=== PATIENT | male | born 1950 | race Caucasian/White ===

== ENCOUNTER 2018-10-29 14:42 | Inpatient (IN) | payer OTHER ==
[~2018-10-29] VITALS: Ht 170.2 cm; Wt 119.9 kg
[2018-10-29] MEDS ORDERED: MAG HYDROX/AL HYDROX/SIMETH 30 ML ORAL.SUSP PO PRN (15:00)
[2018-10-29] MEDS ORDERED: MAGNESIUM HYDROXIDE 2,400 MG/30 ML ORAL.SUSP. PO PRN (15:00)
[2018-10-29] MEDS ORDERED: METHYL SALICYLATE/MENTHOL TOPICAL OINTMENT 29GM TUBE. TP PRN (15:00)
[2018-10-29] MEDS ORDERED: SIMETHICONE 80 MG TAB.CHEW PO PRN (15:15)
--- NOTE | 2018-10-29 15:20 | NUR ---
Admission Note with Justification for Admission to [facility] Patient admitted to [facility] for protective oversight for emergency stabilization of acute psychiatric crisis. Pt admitted from: [facility] via [facility] Mode of arrival: Secure Transport Accompanied By: Secure Transport Precipitating behaviors that initiated intake and admission: Patient reportedly had increased depression, sexual inappropriateness, and agitation Description of failure of out patient attempts at stabilization in previous setting list behavior and medication trials: Patient sent to [facility] who recommended inpatient treatment Behaviors and assessment findings upon admission: Patient calm, joking, compliant with assessment. He followed all directions and asked appropriate questions. States he needs help with intrusive sexual thoughts and depression. Plan: Admit for protective oversight for adjustment and stabilization of medications, behaviors and mood. Intense treatment regimen including groups, medication adjustments, therapy, consistent regimen for ADL's, self care, and sleep hygiene. Daily monitoring by Inpatient staff, Psychiatry, and Medical Physician.
[2018-10-29 15:25] VITALS: BP 170/94
[2018-10-29] MEDS ORDERED: DULO30CA43 PO (15:25)
[2018-10-29] MEDS ORDERED: OXYB5TAB7 PO (15:25)
[2018-10-29] MEDS ORDERED: SIME80TA14 PO (15:25)
[2018-10-29] MEDS ORDERED: OMEP20CA9 PO (15:25)
[2018-10-29] MEDS ORDERED: ATOR10TA60 PO (15:25)
[2018-10-29] MEDS ORDERED: AMLO5TAB10 PO (15:25)
[2018-10-29] MEDS ORDERED: CLOT15CR4 TP (15:25)
[2018-10-29] MEDS ORDERED: KETO120S2 TP (15:57)
[2018-10-29] MEDS ORDERED: CARB15DR3 EACHEYE (15:57)
--- NOTE | 2018-10-29 15:57 | NUR ---
Eduardo is service connected and has [place], [place] authorization number [place] [id number].
[2018-10-29] MEDS ORDERED: POLYVINYL ALCOHOL/POVIDONE/PF OPHTH SOLUTION DROPERETTE. OU PRN (16:15)
[2018-10-29 16:30] VITALS: BP 162/91
[2018-10-29] MEDS: ATORVASTATIN CALCIUM 10 MG TABLET. PO SCH (20:16)
[2018-10-29] MEDS ORDERED: CLOTRIMAZOLE 1% TOPICAL CREAM 30GM TUBE. TP PRN (21:00)
--- NOTE | 2018-10-29 21:11 | NUR ---
Nursing Note The patient was located in the day room for his assessment and medication pass. The patient was compliant with his medications and took them whole. The patient went into much details regarding his past and why he is here. The patient denies SI but does state that he occasionally thinks he has no reason to live. The patient is currently laying in bed in his room.
[2018-10-30 06:04] VITALS: BP 133/84
[2018-10-30 08:01] LABS: BASO # 0.1 x10^3/uL (0.0-0.2); BASO % 1 % (0-3); EOS # 0.3 x10^3/uL (0.0-0.7); EOS % 3 % (0-3); HEMATOCRIT 49.7 % (39.0-53.0); HEMOGLOBIN 16.4 g/dL (13.0-17.5); LYMPH # 2.7 x10^3/uL (1.0-4.8); LYMPH % 26 % (24-48); MEAN CORPUSCULAR HEMOGLOBIN 27 pg (25-35); MEAN CORPUSCULAR HGB CONC 33 g/dL (31-37); MEAN CORPUSCULAR VOLUME 82 fL (79-100); MONO # 0.7 x10^3/uL (0.0-1.1); MONO % 7 % (0-9); NEUT # 6.6 x10^3uL (1.8-7.7); NEUT % 63 % (31-73); PLATELET COUNT 317 x10^3/uL (140-400); RED CELL DISTRIBUTION WIDTH 14.7 % (11.5-14.5); WHITE BLOOD COUNT 10.4 x10^3/uL (4.0-11.0)
[2018-10-30] MEDS: PANTOPRAZOLE 40 MG TABLET. PO SCH (08:12)
[2018-10-30] MEDS: OXYBUTYNIN CHLORIDE 5 MG TABLET PO SCH (08:12)
[2018-10-30] MEDS: amLODIPine BESYLATE 5 MG TABLET PO SCH (08:13)
[2018-10-30] MEDS: DULoxetine HCL 30 MG CAPSULE.DR PO SCH (08:13)
[2018-10-30 08:18] LABS: ALBUMIN 3.4 g/dL (3.4-5.0); ALBUMIN/GLOBULIN RATIO 0.8 (1.0-1.7); CALCIUM 9.3 mg/dL (8.5-10.1); CREATININE 0.7 mg/dL (0.7-1.3); GFR 112.1; MAGNESIUM 1.7 mg/dL (1.8-2.4); POTASSIUM 3.6 mmol/L (3.5-5.1); TOTAL BILIRUBIN 0.7 mg/dL (0.2-1.0); TOTAL PROTEIN 7.8 g/dL (6.4-8.2)
[2018-10-30 13:23] LABS: THYROID STIM HORMONE (TSH) 1.555 uIU/mL (0.358-3.740)
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
[2018-10-30] MEDS: KETOCONAZOLE 2% SHAMPOO 120ML BOTTLE. TP SCH (16:00)
[2018-10-30 16:05] VITALS: BP 152/89
--- NOTE | 2018-10-30 16:24 | NUR ---
WALDEMAR contacted Breanna, director social welfare at [facility], to discuss pt. progress [phone]. Breanna confirmed pt. will return to them upon discharge and that she would need to work with the [facility] to redo pt. contract to hold pt. bed if pt. is here for an extended amount of time but that this would not be a problem.
--- NOTE | 2018-10-30 17:46 | NUR ---
Behavior Intervention Response and Plan: BIRP Note: Behavior: Assumed Care of patient, patient located in Dining Room at shift change. Patient exhibited the following behavior Interactive, Calm, Compliant. Brief assessment on rounds of vital signs, medication needs, lab studies, and pain. Treatment plan problems . Intervention: Patient assessed and the following interventions initiated safety checks 15 Minute Checks Cognitive Assessment , Head to toe Assessment , Medications. Response: After interactions and interventions patient responded in the following manner, Interactive , Calm ,Cooperative. Continue to assess behaviors and condition will continue to monitor throughout the shift as needed. Patient educated on ADL's, and hand hygiene. 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 Continue to assess patient for changes in above assessment. Monitor for medication needs, pain, and safety concerns. Hourly rounding performed to ensure safe environment.
[2018-10-30] MEDS: ATORVASTATIN CALCIUM 10 MG TABLET. PO SCH (19:23)
[2018-10-30] MEDS: NYSTATIN TOPICAL POWDER 15GM BOTTLE. TP SCH (19:23)
--- NOTE | 2018-10-30 21:35 | CONS ---
DATE OF CONSULTATION: 10/30/2018 REASON FOR CONSULTATION: Medical management. HISTORY OF PRESENT ILLNESS: The patient is a 68-year-old male patient, a resident at [facility] via [place] [facility], who was admitted on account of being depressed, sexually inappropriate, agitated, all this in a background of bipolar disorder. He also had apparently an episode of suicidal ideation, although he has never had any suicidal attempt or had any plans. PAST MEDICAL HISTORY: Significant for hypertension, vitamin D deficiency, hyperlipidemia, vitamin B12 deficiency, gastroesophageal reflux disease, morbid obesity. PAST SURGICAL HISTORY: Significant for left hip replacement. He has also bilateral cataract extraction. PSYCHIATRIC HISTORY: Significant for bipolar affective disorder. He has also neuropsychiatric brain syndrome. ALLERGIES: HE IS ALLERGIC TO MORPHINE. MEDICATIONS: He is currently on following medications: He is on atorvastatin 10 mg at bedtime, amlodipine 5 mg once a day, duloxetine 90 mg once a day, carboxymethylcellulose/lysine eye drops 1 drop to both eyes 4 times a day, simethicone 80 mg 3 times a day, omeprazole 20 mg once a day, Clotrimazole 15 grams cream applied topically 3 times a day, ketoconazole shampoo twice weekly and oxybutynin 5 mg daily. FAMILY HISTORY: Unremarkable. SOCIAL HISTORY: He is apparently twice, has 2 children that does not keep in touch with him. He is currently a resident at [facility] in [place]. He does not smoke, drink alcohol or use any recreational drugs. PHYSICAL EXAMINATION: GENERAL: When I saw him this afternoon, he was sitting in his wheelchair comfortably, in no apparent respiratory distress, slightly pale, but no jaundice, cyanosis, or thyromegaly. No jugular venous distension. No limb edema. VITAL SIGNS: His heart rate was 88, blood pressure 133/84, temperature was 97.7, respiratory rate was 16 and oxygen saturation was 95%. HEAD, EYES, EARS, NOSE AND THROAT: Showed normocephalic, atraumatic. NECK: Supple. HEART: Showed normal first and second heart sounds with no gallop, rub or murmur. CHEST: Clear to auscultation. No crepitation or rhonchi. ABDOMEN: Distended, soft, nontender. No guarding or rigidity. No organomegaly. All hernial orifices intact. Bowel sounds normal. NEUROLOGIC: He is awake, alert, responding appropriately. All his cranial nerves are intact. EXTREMITIES: He moves extremities without difficulty. He has leg discrepancy after he underwent surgical treatment of his right hip fracture. He is mostly wheelchair bound, but he is able to walk with a walker. LABORATORY DATA: Showed a white cell count of 10,400, hemoglobin 16, hematocrit 49, MCV 82 and platelet count of 317,000. His chemistry showed a serum sodium 142, potassium 3.6, chloride 105, bicarbonate 30, anion gap of 7, BUN of 14, creatinine 0.7. Estimated GFR was 112 mL per minute. His glucose was 99, calcium was 9.3, magnesium was 1.7. His serum iron was 97, TIBC was 297. Iron saturation was 33. Total bilirubin, AST, ALT are normal. Alkaline phosphatase slightly elevated. Total protein was 7.8, albumin was 3.4. His serum triglycerides were 97. Total cholesterol 117, LDL cholesterol was 63, VLDL was 82, HDL was 35, the ratio was 3. TSH was 1.555. IMPRESSION: So in summary, this is a 68-year-old male patient, a resident at [facility], who was admitted on account of being depressed, sexually inappropriate, asks for sexual favors from the staff stating that he got agitated, depressed, stated that he could get to the kitchen and get a knife and hurt himself, feels worthless, threatening to others, all this in a background of bipolar disorder. Medically, the patient has multiple medical problems including obesity, osteoarthritis, impotence of psychogenic origin. He has leg length inequality, hyperlipidemia, gastroesophageal reflux disease, vitamin B12 deficiency. He is also known to have hypertension, vitamin D deficiency, and traumatic brain injury. However, all in all, the patient seems to be medically stable. All his vital signs are within acceptable range and all his lab works are within acceptable range. I reviewed all his medications and seem to be appropriate. I will definitely continue all this medication. I will follow all his lab works that are still pending at the time of this dictation and make any necessary recommendation. Thank you, Dr. Matthew for allowing me to participate in the care of this patient. YANA DEJESUS MD DR: ISABEL/agnieszka JOB#: [id number] / [id number]
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
[2018-10-30] MEDS: ACETAMINOPHEN 325 MG TABLET PO PRN (22:21)
[2018-10-30 23:07] LABS: HEMOGLOBIN A1C 5.6 % (4.8-5.6)
--- NOTE | 2018-10-31 01:12 | NUR ---
Nursing Note The patient was located in the day room for his assessment and medication pass. The patient was compliant with his medications and took them whole. The patient was appropriate during interactions with this nurse and peers. The patient complained that his feet were hurting so was given PRN Tylenol. The patient is currently sleeping in bed.
--- NOTE | 2018-10-31 03:00 | NUR ---
WALDEMAR received and returned a call to Maria G, transfer nurse at the [place], requesting update on pt. progress. WALDEMAR shared with Maria G, pt. behaviors. [phone] ext. [phone]
[2018-10-31 05:49] VITALS: BP 140/93
[2018-10-31] MEDS: PANTOPRAZOLE 40 MG TABLET. PO SCH (08:12)
[2018-10-31] MEDS: DULoxetine HCL 30 MG CAPSULE.DR PO SCH (08:12)
[2018-10-31] MEDS: OXYBUTYNIN CHLORIDE 5 MG TABLET PO SCH (08:12)
[2018-10-31] MEDS: amLODIPine BESYLATE 5 MG TABLET PO SCH (08:13)
[2018-10-31] MEDS: NYSTATIN TOPICAL POWDER 15GM BOTTLE. TP SCH ×2 (08:14→21:00)
--- NOTE | 2018-10-31 09:28 | NUR ---
Behavior Intervention Response and Plan: BIRP Note: Behavior: Assumed Care of patient, patient located in Dining Room at shift change. Patient exhibited the following behavior Calm, Cooperative, Social. Brief assessment on rounds of vital signs, medication needs, lab studies, and pain. Treatment plan problems . Intervention: Patient assessed and the following interventions initiated safety checks 15 Minute Checks Personal Alarm in place , Personal Alarm in place , Call macdonald in reach. Response: After interactions and interventions patient responded in the following manner, Calm , Compliant ,Social. Continue to assess behaviors and condition will continue to monitor throughout the shift as needed. Patient educated on ADL's, and hand hygiene. 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 Continue to assess patient for changes in above assessment. Monitor for medication needs, pain, and safety concerns. Hourly rounding performed to ensure safe environment.
--- NOTE | 2018-10-31 14:45 | NUR ---
Activity Therapy Assessment: Pt was sitting down in his wheelchair during the assessment. Pt was able to remember his name, age, family, past experiences, however he did not know the name of the hospital and city that he was located in. Pt was able to verbally express himself and sometimes would tell jokes to staff. Pt uses a wheelchair to ambulate and expressed that in the past he had surgery on his hip, femur, and left leg. Pt will need help with most of his ADLs. Initial Treatment Goals: Pt will increase stress management and recreation education by engaging in at least three activity groups per week. Pt expressed that he loves watching television, however there is no history of other recreation activities that he has engaged in. Pt stated that he would love to engage in more social atmospheres because he has not had any family to speak to consistently in years.
[2018-10-31 15:43] VITALS: BP 126/85
[2018-10-31] MEDS: ATORVASTATIN CALCIUM 10 MG TABLET. PO SCH (19:42)
--- NOTE | 2018-10-31 22:29 | NUR ---
Nursing Note The patient was located in his room for his assessment and medication pass. The patient was compliant with his medications and took them whole. The patient was visibly upset during interactions with this nurse but would only state that he was upset with someone earlier and that was why he was sitting in his room alone. The patient is currently sleeping in his room.
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
[2018-11-01] MEDS: DULoxetine HCL 30 MG CAPSULE.DR PO SCH (08:40)
[2018-11-01] MEDS: amLODIPine BESYLATE 5 MG TABLET PO SCH (08:41)
[2018-11-01] MEDS: NYSTATIN TOPICAL POWDER 15GM BOTTLE. TP SCH ×2 (08:41→19:49)
[2018-11-01] MEDS: PANTOPRAZOLE 40 MG TABLET. PO SCH (08:41)
[2018-11-01] MEDS: OXYBUTYNIN CHLORIDE 5 MG TABLET PO SCH (08:41)
[2018-11-01 09:00] VITALS: BP 138/86
--- NOTE | 2018-11-01 09:59 | NUR ---
Behavior Intervention Response and Plan: BIRP Note: Behavior: Assumed Care of patient, patient located in Dining Room at shift change. Patient exhibited the following behavior Calm, Cooperative, Compliant. Brief assessment on rounds of vital signs, medication needs, lab studies, and pain. Treatment plan problems . Intervention: Patient assessed and the following interventions initiated safety checks 15 Minute Checks Personal Alarm in place , Cognitive Assessment , Head to toe Assessment. Response: After interactions and interventions patient responded in the following manner, Calm , Cooperative ,Compliant. Continue to assess behaviors and condition will continue to monitor throughout the shift as needed. Patient educated on ADL's, and hand hygiene. 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 Continue to assess patient for changes in above assessment. Monitor for medication needs, pain, and safety concerns. Hourly rounding performed to ensure safe environment.
[2018-11-01] MEDS: ACETAMINOPHEN 325 MG TABLET PO PRN ×2 (14:24→22:13)
[2018-11-01 15:52] VITALS: BP 121/68
--- NOTE | 2018-11-01 17:16 | EKG ---
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
--- NOTE | 2018-11-01 19:26 | PN ---
DATE: 11/01/2018 SUBJECTIVE: The patient was seen today, met with the staff, chart reviewed. The patient states he is still having a lot of intrusive negative thoughts, not feeling well, feeling depressed, likes to be left alone. OBSERVATION: VITAL SIGNS: Temperature 97.3, blood pressure 160/92, pulse 90, respiration 18, O2 sat 92%. GENERAL: Slept for 6 hours last night. MEDICATIONS: The patient's current medications include Cymbalta 90 mg daily and he is not having any side effects. ASSESSMENT: 1. Bipolar disorder, mixed, moderate without psychotic features. 2. Generalized anxiety disorder. 3. Impulse control disorder. PLAN: Plan is to continue with the treatment. We will start on Abilify 5 mg daily at the patient's request. The patient will be monitored closely. LENGTH OF STAY: 7-10 days. KATHRINE GARCIA MD DR: MARI/agnieszka JOB#: [id number] / [id number]
[2018-11-01] MEDS: ATORVASTATIN CALCIUM 10 MG TABLET. PO SCH (19:49)
--- NOTE | 2018-11-01 23:25 | NUR ---
Nursing Note The patient was witnessed interacting with other patients during shift change this shift. The patient was located in his room for his assessment and medication pass. The patient was compliant with his meds and took them whole. The patient had a long discussion with this nurse regarding what he was here for and how he is benefiting from staying here. The patient was concerned he was not benefiting from being here but was reassured when this nurse informed him that medication changes were being made and that he should give the new medications time to work. The patient is currently sleeping in his room. The patient requested PRN Tylenol at HS.
[2018-11-02 05:52] VITALS: BP 143/89
[2018-11-02] MEDS: amLODIPine BESYLATE 5 MG TABLET PO SCH (08:06)
[2018-11-02] MEDS: DULoxetine HCL 30 MG CAPSULE.DR PO SCH (08:06)
[2018-11-02] MEDS: OXYBUTYNIN CHLORIDE 5 MG TABLET PO SCH (08:06)
[2018-11-02] MEDS: PANTOPRAZOLE 40 MG TABLET. PO SCH (08:06)
[2018-11-02] MEDS: NYSTATIN TOPICAL POWDER 15GM BOTTLE. TP SCH ×2 (08:07→20:59)
[2018-11-02] MEDS ORDERED: ARIPiprazole 5 MG TABLET PO SCH (09:00)
--- NOTE | 2018-11-02 10:03 | NUR ---
Behavior Intervention Response and Plan: BIRP Note: Behavior: Assumed Care of patient, patient located in Dining Room at shift change. Patient exhibited the following behavior Calm, Sarcastic, Cooperative. Brief assessment on rounds of vital signs, medication needs, lab studies, and pain. Treatment plan problems . Intervention: Patient assessed and the following interventions initiated safety checks 15 Minute Checks Personal Alarm in place , Cognitive Assessment , Head to toe Assessment. Response: After interactions and interventions patient responded in the following manner, Calm , Cooperative ,Compliant. Continue to assess behaviors and condition will continue to monitor throughout the shift as needed. Patient educated on ADL's, and hand hygiene. 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 Continue to assess patient for changes in above assessment. Monitor for medication needs, pain, and safety concerns. Hourly rounding performed to ensure safe environment.
[2018-11-02 15:41] VITALS: BP 144/96
[2018-11-02] MEDS: ATORVASTATIN CALCIUM 10 MG TABLET. PO SCH (20:43)
[2018-11-02] MEDS: ACETAMINOPHEN 325 MG TABLET PO PRN (21:00)
--- NOTE | 2018-11-03 00:04 | NUR ---
Nursing Note: Pt resting comfortably in bed. Pt is compliant with medications, assessment and cares. He c/o lower back pain and requested Tylenol. Pt is pleasant, calm and cooperative.
--- NOTE | 2018-11-03 01:17 | PN ---
DATE: 11/02/2018 SUBJECTIVE: The patient was seen today, met with the staff, chart reviewed. The patient continues to isolate himself, complains of feeling depressed, having difficulty structuring his time. The patient still has problems with impulsive thoughts, having difficulty controlling at times. OBSERVATION: VITAL SIGNS: Temperature 97.4, blood pressure 143/89, pulse 92, respirations 21, and O2 sat 93%. Slept about 6 hours last night. The patient's appetite is normal. LABORATORY DATA: The patient's lab reviewed, no change. CURRENT MEDICATIONS: Include: 1. Abilify 5 mg dose, plan to increase to 10 mg daily. 2. Cymbalta 90 mg daily. ASSESSMENT: 1. Bipolar disorder, mixed, moderate without psychotic features. 2. Generalized anxiety disorder. 3. Impulse control disorder. PLAN: The plan is to continue with the treatment. LENGTH OF STAY: Seven days. KATHRINE GARCIA MD DR: MARI/agnieszka JOB#: [id number] / [id number]
[2018-11-03 05:50] VITALS: BP 137/80
[2018-11-03] MEDS: PANTOPRAZOLE 40 MG TABLET. PO SCH (08:08)
[2018-11-03] MEDS: OXYBUTYNIN CHLORIDE 5 MG TABLET PO SCH (08:08)
[2018-11-03] MEDS: amLODIPine BESYLATE 5 MG TABLET PO SCH (08:09)
[2018-11-03] MEDS: DULoxetine HCL 30 MG CAPSULE.DR PO SCH (08:44)
[2018-11-03] MEDS: NYSTATIN TOPICAL POWDER 15GM BOTTLE. TP SCH ×2 (08:45→20:04)
[2018-11-03] MEDS ORDERED: ARIPiprazole 5 MG TABLET PO SCH (09:00)
--- NOTE | 2018-11-03 09:40 | NUR ---
Behavior Intervention Response and Plan: BIRP Note: Behavior: Assumed Care of patient, patient located in Dining Room at shift change. Patient exhibited the following behavior Calm, Social, Cooperative. Brief assessment on rounds of vital signs, medication needs, lab studies, and pain. Treatment plan problems . Intervention: Patient assessed and the following interventions initiated safety checks 15 Minute Checks Personal Alarm in place , Cognitive Assessment , Head to toe Assessment. Response: After interactions and interventions patient responded in the following manner, Calm , Compliant ,Cooperative. Continue to assess behaviors and condition will continue to monitor throughout the shift as needed. Patient educated on ADL's, and hand hygiene. 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 Continue to assess patient for changes in above assessment. Monitor for medication needs, pain, and safety concerns. Hourly rounding performed to ensure safe environment.
[2018-11-03] MEDS: KETOCONAZOLE 2% SHAMPOO 120ML BOTTLE. TP SCH (16:00)
[2018-11-03 16:18] VITALS: BP 119/74
[2018-11-03] MEDS: ATORVASTATIN CALCIUM 10 MG TABLET. PO SCH (20:04)
[2018-11-03] MEDS: ACETAMINOPHEN 325 MG TABLET PO PRN (20:40)
--- NOTE | 2018-11-03 21:46 | NUR ---
Nursing note: Assumed care of pt in his room. He was sitting quietly alone in the dark. He was calm and cooperative, compliant with meds, no c/o pain, no agitation.
--- NOTE | 2018-11-03 22:46 | PDOC ---
Exam Note: David Note: Please also refer to the separate dictated note~for this date of service dictated separately. Discussed the patient with Nursing staff reviewed the chart.~Reviewed interim history and current functioning. Reviewed vital signs,~Labs/ Radiology~and current medications noted below. Continue current treatment with the changes noted in the dictated addendum note Assessment: Vital Signs: Vital Signs Date Time Temp Pulse Resp B/P (MAP) Pulse Ox O2 Delivery O2 Flow Rate FiO2 11/03/18 16:18 97.8 104 18 119/74 (89) 92 11/01/18 15:52 Room Air I&O Intake and Output 11/03/18 06:59 Intake Total 840 ml Balance 840 ml Intake Oral 840 ml # Voids 1 Current Medications: Meds: Current Medications Acetaminophen (Tylenol) 650 mg PRN Q6HRS PRN PO PAIN / TEMP Last administered on 11/03/18at 20:40; Start 10/29/18 at 15:00 Multi-Ingredient Ointment (Analgesic [place]) 1 yoselin PRN QID PRN TP MUSCLE PAIN; Start 10/29/18 at 15:00 Al Hydroxide/Mg Hydroxide (Mylanta Plus Xs) 15 ml PRN AFTMEALHC PRN PO DYSPEPSIA; Start 10/29/18 at 15:00 Magnesium Hydroxide (Milk Of Magnesia) 2,400 mg PRN QHS PRN PO CONSTIPATION; Start 10/29/18 at 15:00 Ketoconazole (Nizoral 2% Shampoo) 1 yoselin QMTH TP Last administered on 11/03/18at 16:00; Start 10/30/18 at 16:00 Oxybutynin Chloride (Ditropan) 5 mg DAILY PO Last administered on 11/03/18at 08:08; Start 10/30/18 at 09:00 Simethicone (Gas-X) 80 mg PRN TID PRN PO GAS / BLOATING; Start 10/29/18 at 15 :15 Amlodipine Besylate (Norvasc) 5 mg DAILY PO Last administered on 11/03/18at 08:09; Start 10/30/18 at 09:00 Atorvastatin Calcium (Lipitor) 10 mg QHS PO Last administered on 11/03/18at 20:04; Start 10/29/18 at 21:00 Artificial Tears (Refresh Classic) 1 drop PRN QID PRN OU DRY EYE; Start 10/29/18 at 16:15 Clotrimazole (Lotrimin) 1 yoselin PRN TID PRN TP RASH; Start 10/29/18 at 21:00 Duloxetine HCl (Cymbalta) 90 mg DAILY PO Last administered on 11/03/18at 08:44; Start 10/30/18 at 09:00 Pantoprazole Sodium (Protonix) 40 mg DAILYAC PO Last administered on 11/03/18at 08:08; Start 10/30/18 at 07:30 Nystatin (Nystop) 1 yoselin BID TP Last administered on 11/03/18at 20:04; Start 10/30/18 at 21:00 Aripiprazole (Abilify) 5 mg DAILY PO Last administered on 11/02/18at 08:07; Start 11/02/18 at 09:00; Stop 11/02/18 at 17:44; Status DC Aripiprazole (Abilify) 10 mg DAILY PO Last administered on 11/03/18at 08:08; Start 11/03/18 at 09:00; Stop 11/03/18 at 16:48; Status DC Aripiprazole (Abilify) 10 mg DAILY PO ; Start 11/04/18 at 09:00 Active Scripts Active Reported Ketoconazole 120 Ml Shampoo 1 Yoselin TP TWICE WEEKLY Refresh Optive Eye Drops (Carboxymethylcellulos/Glycerin) 15 Ml Drops 1 Drop EACHEYE PRN QID PRN Simethicone 80 Mg Tab.chew 80 Mg PO PRN TID PRN Oxybutynin Chloride 5 Mg Tablet 5 Mg PO DAILY Omeprazole 20 Mg Capsule.dr 20 Mg PO DAILY07 Duloxetine Hcl 30 Mg Capsule.dr 90 Mg PO DAILY Clotrimazole 15 Gm Cream..g. 1 Yoselin TP PRN TID PRN Atorvastatin Calcium 10 Mg Tablet 10 Mg PO QHS Amlodipine Besylate 5 Mg Tablet 5 Mg PO DAILY I have reviewed the current psychotropics carefully including drug interactions. Risk benefit ratio favors no change other than as noted in my dictated progress note. Diagnosis: Problems: (1) Anxiety disorder (2) Impulse control disorder (3) Major depressive disorder, recurrent episode (4) Mild cognitive impairment ROSALINDA GARCIA MD Nov 03, 2018 22:46
[2018-11-04 05:11] VITALS: BP 137/87
[2018-11-04] MEDS: NYSTATIN TOPICAL POWDER 15GM BOTTLE. TP SCH ×2 (09:00→19:30)
[2018-11-04] MEDS: PANTOPRAZOLE 40 MG TABLET. PO SCH (09:34)
[2018-11-04] MEDS: DULoxetine HCL 30 MG CAPSULE.DR PO SCH (09:35)
[2018-11-04] MEDS: OXYBUTYNIN CHLORIDE 5 MG TABLET PO SCH (09:36)
[2018-11-04] MEDS: amLODIPine BESYLATE 5 MG TABLET PO SCH (09:38)
[2018-11-04] MEDS: ARIPiprazole 10 MG TABLET PO SCH (09:48)
--- NOTE | 2018-11-04 10:41 | NUR ---
WALDEMAR spoke with Maria G at the [facility] to give an update on pt progress. It is noted in the computer that pt is calm, compliant with cares and medications, as well as interactive with staff and peers. WALDEMAR did not that there are times, where pt is heard making some inappropriate comments, but does is redirectable. Pt is found sitting in the dark in his room, often but not other behaviors have been noted. Pt has tx team on and WALDEMAR will contact Maria G with that update.
--- NOTE | 2018-11-04 11:23 | NUR ---
Patient has had a great morning, took medications, tolerated morning assessment. No signs of agitation noted. Was quietly resting in his room upon med pass. Is doing a good job interacting with other patients and staff members.
[2018-11-04 16:22] VITALS: BP 124/75
[2018-11-04] MEDS ORDERED: traMADol 50 MG TABLET PO PRN (17:45)
[2018-11-04] MEDS ORDERED: guaiFENesin DM 200MG/20MG 10 ML SYRUP PO PRN (17:45)
[2018-11-04] MEDS: ATORVASTATIN CALCIUM 10 MG TABLET. PO SCH (19:30)
--- NOTE | 2018-11-04 21:16 | NUR ---
Nursing note: Assumed care of pt in his room. He was sitting in the dark and is depressed. He doesn't know what is going to happen. He tried to refuse his HS med, atorvastatin, but asked for his PRN Tramadol for pain in his back, 11/21. Pt says he just wants out of here but wants to get better too.
--- NOTE | 2018-11-04 21:46 | PN ---
DATE: 11/03/2018 PSYCHIATRIC PROGRESS NOTE This late entry 11/03/2018 covers elements not covered in my initial note. SUBJECTIVE: I met with the patient in the evening and reviewed information from Dr. Al over the last several days. The patient slept 6-1/2 hours previous night. He has not been aggressive per nursing report, remains anxious. I met with him in the common area in the evening. While in the dining room, he was making statements to " them." Reviewed his social history. He has 2 children. 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 REVIEW OF SYSTEMS: Ambulation impaired, in wheelchair. No CV, , pulmonary, eye, ENT system symptoms on review. MENTAL STATUS EXAM: Oriented to himself and situation. Speech is coherent, abstraction fair, computation impaired, language function intact, attention span short. Mood and affect somewhat anxious, labile at times. LABORATORY DATA: Reviewed. IMPRESSION: Bipolar disorder, mixed; major neurocognitive disorder; Alzheimer, vascular with delusion, depression. Rest unchanged. PLAN: No change from initial note. We will reassess psychotropics. Continue Cymbalta 90 mg a day, Abilify 10 mg a day. MAN Haylie GARCIA MD DR: EDDIE/agineszka JOB#: [id number] / [id number]
--- NOTE | 2018-11-04 22:46 | PDOC ---
Exam Note: David Note: Please also refer to the separate dictated note~for this date of service dictated separately.~Patient seen individually. Discussed the patient with Nursing staff reviewed the chart.~Reviewed interim history and current functioning. Reviewed vital signs,~Labs/ Radiology~and current medications noted below. Continue current treatment with the changes noted in the dictated addendum note Assessment: Vital Signs: Vital Signs Date Time Temp Pulse Resp B/P (MAP) Pulse Ox O2 Delivery O2 Flow Rate FiO2 11/04/18 20:04 99 Room Air 11/04/18 16:22 97.3 98 18 124/75 (91) I&O Intake and Output 11/04/18 06:59 Intake Total 1200 ml Balance 1200 ml Intake Oral 1200 ml Current Medications: Meds: Current Medications Acetaminophen (Tylenol) 650 mg PRN Q6HRS PRN PO PAIN / TEMP Last administered on 11/03/18at 20:40; Start 10/29/18 at 15:00 Multi-Ingredient Ointment (Analgesic [place]) 1 yoselin PRN QID PRN TP MUSCLE PAIN; Start 10/29/18 at 15:00 Al Hydroxide/Mg Hydroxide (Mylanta Plus Xs) 15 ml PRN AFTMEALHC PRN PO DYSPEPSIA; Start 10/29/18 at 15:00 Magnesium Hydroxide (Milk Of Magnesia) 2,400 mg PRN QHS PRN PO CONSTIPATION; Start 10/29/18 at 15:00 Ketoconazole (Nizoral 2% Shampoo) 1 yoselin QMTH TP Last administered on 11/03/18at 16:00; Start 10/30/18 at 16:00 Oxybutynin Chloride (Ditropan) 5 mg DAILY PO Last administered on 11/04/18at 09:36; Start 10/30/18 at 09:00 Simethicone (Gas-X) 80 mg PRN TID PRN PO GAS / BLOATING; Start 10/29/18 at 15:15 Amlodipine Besylate (Norvasc) 5 mg DAILY PO Last administered on 11/04/18at 09:38; Start 10/30/18 at 09:00 Atorvastatin Calcium (Lipitor) 10 mg QHS PO Last administered on 11/04/18at 19:30; Start 10/29/18 at 21:00 Artificial Tears (Refresh Classic) 1 drop PRN QID PRN OU DRY EYE; Start 10/29/18 at 16:15 Clotrimazole (Lotrimin) 1 yoselin PRN TID PRN TP RASH; Start 10/29/18 at 21:00 Duloxetine HCl (Cymbalta) 90 mg DAILY PO Last administered on 11/04/18at 09:35; Start 10/30/18 at 09:00 Pantoprazole Sodium (Protonix) 40 mg DAILYAC PO Last administered on 11/04/18at 09:34; Start 10/30/18 at 07:30 Nystatin (Nystop) 1 yoselin BID TP Last administered on 11/04/18at 19:30; Start 10/30/18 at 21:00 Aripiprazole (Abilify) 5 mg DAILY PO Last administered on 11/02/18at 08:07; Start 11/02/18 at 09:00; Stop 11/02/18 at 17:44; Status DC Aripiprazole (Abilify) 10 mg DAILY PO Last administered on 11/03/18at 08:08; Start 11/03/18 at 09:00; Stop 11/03/18 at 16:48; Status DC Aripiprazole (Abilify) 10 mg DAILY PO Last administered on 11/04/18at 09:48; Start 11/04/18 at 09:00 Tramadol HCl (Ultram) 50 mg PRN Q6HRS PRN PO PAIN Last administered on 11/04/18at 20:04; Start 11/04/18 at 17:45 Guaifenesin (Robitussin Dm) 10 ml PRN Q6HRS PRN PO COUGH; Start 11/04/18 at 17:45 Active Scripts Active Reported Ketoconazole 120 Ml Shampoo 1 Yoselin TP TWICE WEEKLY Refresh Optive Eye Drops (Carboxymethylcellulos/Glycerin) 15 Ml Drops 1 Drop EACHEYE PRN QID PRN Simethicone 80 Mg Tab.chew 80 Mg PO PRN TID PRN Oxybutynin Chloride 5 Mg Tablet 5 Mg PO DAILY Omeprazole 20 Mg Capsule.dr 20 Mg PO DAILY07 Duloxetine Hcl 30 Mg Capsule.dr 90 Mg PO DAILY Clotrimazole 15 Gm Cream..g. 1 Yoselin TP PRN TID PRN Atorvastatin Calcium 10 Mg Tablet 10 Mg PO QHS Amlodipine Besylate 5 Mg Tablet 5 Mg PO DAILY I have reviewed the current psychotropics carefully including drug interactions. Risk benefit ratio favors no change other than as noted in my dictated progress note. Diagnosis: Problems: (1) Anxiety disorder (2) Impulse control disorder (3) Major depressive disorder, recurrent episode (4) Mild cognitive impairment ROSALINDA GARCIA MD Nov 04, 2018 22:46
[2018-11-05 06:24] VITALS: BP 137/88
[2018-11-05] MEDS: ARIPiprazole 10 MG TABLET PO SCH (07:43)
[2018-11-05] MEDS: amLODIPine BESYLATE 5 MG TABLET PO SCH (07:44)
[2018-11-05] MEDS: OXYBUTYNIN CHLORIDE 5 MG TABLET PO SCH (07:44)
[2018-11-05] MEDS: PANTOPRAZOLE 40 MG TABLET. PO SCH (07:45)
[2018-11-05] MEDS: DULoxetine HCL 30 MG CAPSULE.DR PO SCH (07:45)
--- NOTE | 2018-11-05 10:39 | NUR ---
Pt. requested to speak with SW. Pt. shared he does not feel that anything is changing for him and stated he doesn't have anyone to talk to here. "I don't see anything for me in the future." SW encourage pt. to speak with staff and explained to pt. that we do not have individual counseling but that he would be meeting with the doctor regularly. Pt. also asked how long a person could stay here, as he feels this is "as good of a place as [place]". SW explained to pt. that the hospital is a short term stay and staying retirement is not an option. SW encourage pt. to continue to let the doctor know how he is feeling and to give his medication a chance to work.
[2018-11-05] MEDS: NYSTATIN TOPICAL POWDER 15GM BOTTLE. TP SCH ×2 (12:58→19:32)
--- NOTE | 2018-11-05 15:34 | NUR ---
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
[2018-11-05 16:29] VITALS: BP 144/90
[2018-11-05 16:30] VITALS: BP 144/90
[2018-11-05] MEDS: ATORVASTATIN CALCIUM 10 MG TABLET. PO SCH (19:32)
[2018-11-05] MEDS: traZODone 50 MG TABLET. PO SCH (19:33)
[2018-11-05] MEDS: IBUPROFEN 400 MG TABLET. PO PRN (20:03)
[2018-11-05] MEDS: CLOTRIMAZOLE/BETAMETH 1%-0.05% TOPICAL CREAM 15GM TUBE. TP SCH (21:16)
--- NOTE | 2018-11-05 22:14 | NUR ---
Nursing note: Assumed care of pt in his room. He was very talkative and pleasant. Pt explained how he ended up with the brace on his leg. He likes talking to people. Pt was compliant with meds. A&OX4. Denies SI. Pain level 6/10, given PRN Ibuprofen.
--- NOTE | 2018-11-05 22:44 | PN ---
DATE: 11/04/2018 PSYCHIATRIC PROGRESS NOTE This late entry date of service 11/04/2018 covers elements not covered in my initial note. SUBJECTIVE: I met with the patient in the evening. The patient slept 6 hours previous night. He has had a good day. Previous night, he was somewhat sexually inappropriate. During the day, he naps off and on. REVIEW OF SYSTEMS: Ambulation impaired, in wheelchair. No CV, , pulmonary, eye, ENT system symptoms on review. MENTAL STATUS EXAM: Oriented to himself and situation. Speech is coherent, a little pressured at times. Abstraction fair, computation impaired, language function intact, attention span short. Mood and affect still remains somewhat anxious, labile and he was complaining about certain activities of the nursing staff. I addressed it with him at some length individually in his room. LABORATORY DATA: Reviewed. IMPRESSION: Unchanged from initial note. PLAN: Continue current psychotropics including duloxetine 90 mg a day, Abilify 10 mg a day, and may consider a mood stabilizer as well in due course. MAN Haylie GARCIA MD DR: EDDIE/agnieszka JOB#: [id number] / [id number]
--- NOTE | 2018-11-05 22:47 | PDOC ---
Exam Note: David Note: Please also refer to the separate dictated note~for this date of service dictated separately.~Patient seen individually. Discussed the patient with Nursing staff reviewed the chart.~Reviewed interim history and current functioning. Reviewed vital signs,~Labs/ Radiology~and current medications noted below. Continue current treatment with the changes noted in the dictated addendum note Assessment: Vital Signs: Vital Signs Date Time Temp Pulse Resp B/P (MAP) Pulse Ox O2 Delivery O2 Flow Rate FiO2 11/05/18 16:30 98.8 102 20 144/90 (108) 92 11/04/18 21:04 Room Air I&O Intake and Output 11/05/18 07:00 Intake Total 1200 ml Balance 1200 ml Intake Oral 1200 ml Current Medications: Meds: Current Medications Acetaminophen (Tylenol) 650 mg PRN Q6HRS PRN PO PAIN / TEMP Last administered on 11/03/18 20:40; Start 10/29/18 at 15:00; Stop 11/05/18 at 16:20; Status DC Multi-Ingredient Ointment (Analgesic [place]) 1 yoselin PRN QID PRN TP MUSCLE PAIN; Start 10/29/18 at 15:00 Al Hydroxide/Mg Hydroxide (Mylanta Plus Xs) 15 ml PRN AFTMEALHC PRN PO DYSPEPSIA; Start 10/29/18 at 15:00 Magnesium Hydroxide (Milk Of Magnesia) 2,400 mg PRN QHS PRN PO CONSTIPATION; Start 10/29/18 at 15:00 Ketoconazole (Nizoral 2% Shampoo) 1 yoselin QMTH TP Last administered on 11/03/18at 16:00; Start 10/30/18 at 16:00 Oxybutynin Chloride (Ditropan) 5 mg DAILY PO Last administered on 11/05/18 07:44; Start 10/30/18 at 09:00 Simethicone (Gas-X) 80 mg PRN TID PRN PO GAS / BLOATING; Start 10/29/18 at 15:15 Amlodipine Besylate (Norvasc) 5 mg DAILY PO Last administered on 11/05/18at 07:44; Start 10/30/18 at 09:00 Atorvastatin Calcium (Lipitor) 10 mg QHS PO Last administered on 11/05/18 19:32; Start 10/29/18 at 21:00 Artificial Tears (Refresh Classic) 1 drop PRN QID PRN OU DRY EYE; Start 10/29/18 at 16:15 Clotrimazole (Lotrimin) 1 yoselin PRN TID PRN TP RASH; Start 10/29/18 at 21:00 Duloxetine HCl (Cymbalta) 90 mg DAILY PO Last administered on 11/05/18at 07:45; Start 10/30/18 at 09:00 Pantoprazole Sodium (Protonix) 40 mg DAILYAC PO Last administered on 11/05/18at 07:45; Start 10/30/18 at 07:30 Nystatin (Nystop) 1 yoselin BID TP Last administered on 11/05/18at 19:32; Start 10/30/18 at 21:00 Aripiprazole (Abilify) 5 mg DAILY PO Last administered on 11/02/18at 08:07; Start 11/02/18 at 09:00; Stop 11/02/18 at 17:44; Status DC Aripiprazole (Abilify) 10 mg DAILY PO Last administered on 11/03/18at 08:08; Start 11/03/18 at 09:00; Stop 11/03/18 at 16:48; Status DC Aripiprazole (Abilify) 10 mg DAILY PO Last administered on 11/05/18at 07:43; Start 11/04/18 at 09:00 Tramadol HCl (Ultram) 50 mg PRN Q6HRS PRN PO PAIN Last administered on 11/04/18at 20:04; Start 11/04/18 at 17:45; Stop 11/05/18 at 16:20; Status DC Guaifenesin (Robitussin Dm) 10 ml PRN Q6HRS PRN PO COUGH; Start 11/04/18 at 17:45 Ibuprofen (Motrin) 400 mg PRN Q4HRS PRN PO INFLAMMATION Last administered on 11/05/18at 20:03; Start 11/05/18 at 16:30 Benzonatate (Tessalon Perle) 200 mg PRN TID PRN PO COUGH; Start 11/05/18 at 16:30 Docusate Sodium (Colace) 100 mg DAILY PO ; Start 11/06/18 at 09:00 Betamethasone/ Clotrimazole (Lotrisone) 1 yoselin BID TP Last administered on 11/05/18at 21:16; Start 11/05/18 at 21:00 Trazodone HCl (Desyrel) 50 mg QHS PO Last administered on 11/05/18at 19:33; Start 11/05/18 at 21:00 Trazodone HCl (Desyrel) 50 mg PRN QHS PRN PO INSOMNIA; Start 11/05/18 at 16:45 Active Scripts Active Reported Ketoconazole 120 Ml Shampoo 1 Yoselin TP TWICE WEEKLY Refresh Optive Eye Drops (Carboxymethylcellulos/Glycerin) 15 Ml Drops 1 Drop EACHEYE PRN QID PRN Simethicone 80 Mg Tab.chew 80 Mg PO PRN TID PRN Oxybutynin Chloride 5 Mg Tablet 5 Mg PO DAILY Omeprazole 20 Mg Capsule.dr 20 Mg PO DAILY07 Duloxetine Hcl 30 Mg Capsule.dr 90 Mg PO DAILY Clotrimazole 15 Gm Cream..g. 1 Yoselin TP PRN TID PRN Atorvastatin Calcium 10 Mg Tablet 10 Mg PO QHS Amlodipine Besylate 5 Mg Tablet 5 Mg PO DAILY I have reviewed the current psychotropics carefully including drug interactions. Risk benefit ratio favors no change other than as noted in my dictated progress note. Diagnosis: Problems: (1) Anxiety disorder (2) Impulse control disorder (3) Major depressive disorder, recurrent episode (4) Mild cognitive impairment ROSALINDA GARCIA MD Nov 05, 2018 22:47
[2018-11-06 05:48] VITALS: BP 145/89
[2018-11-06 07:02] LABS: BASO % 1 % (0-3); EOS # 0.3 x10^3/uL (0.0-0.7); EOS % 4 % (0-3); HEMATOCRIT 44.8 % (39.0-53.0); HEMOGLOBIN 14.9 g/dL (13.0-17.5); LYMPH # 2.3 x10^3/uL (1.0-4.8); LYMPH % 29 % (24-48); MEAN CORPUSCULAR HEMOGLOBIN 27 pg (25-35); MEAN CORPUSCULAR HGB CONC 33 g/dL (31-37); MEAN CORPUSCULAR VOLUME 81 fL (79-100); MONO # 0.6 x10^3/uL (0.0-1.1); MONO % 8 % (0-9); NEUT # 4.8 x10^3uL (1.8-7.7); NEUT % 59 % (31-73); PLATELET COUNT 278 x10^3/uL (140-400); RED BLOOD COUNT 5.51 x10^6/uL (4.30-5.70); RED CELL DISTRIBUTION WIDTH 15.1 % (11.5-14.5)
[2018-11-06 07:10] LABS: ALBUMIN 3.1 g/dL (3.4-5.0); ALBUMIN/GLOBULIN RATIO 0.8 (1.0-1.7); CALCIUM 8.9 mg/dL (8.5-10.1); CREATININE 0.7 mg/dL (0.7-1.3); GFR 112.1; POTASSIUM 3.6 mmol/L (3.5-5.1); TOTAL BILIRUBIN 0.4 mg/dL (0.2-1.0); TOTAL PROTEIN 7.1 g/dL (6.4-8.2)
[2018-11-06] MEDS: amLODIPine BESYLATE 5 MG TABLET PO SCH (07:33)
[2018-11-06] MEDS: OXYBUTYNIN CHLORIDE 5 MG TABLET PO SCH (07:33)
[2018-11-06] MEDS: ARIPiprazole 10 MG TABLET PO SCH (07:33)
[2018-11-06] MEDS: DULoxetine HCL 30 MG CAPSULE.DR PO SCH (07:34)
[2018-11-06] MEDS: NYSTATIN TOPICAL POWDER 15GM BOTTLE. TP SCH ×2 (07:34→19:33)
[2018-11-06] MEDS: PANTOPRAZOLE 40 MG TABLET. PO SCH (07:34)
[2018-11-06] MEDS: DOCUSATE SODIUM 100 MG CAPSULE PO SCH (07:37)
[2018-11-06] MEDS: CLOTRIMAZOLE/BETAMETH 1%-0.05% TOPICAL CREAM 15GM TUBE. TP SCH ×2 (09:00→19:34)
--- NOTE | 2018-11-06 09:23 | NUR ---
WEEKLY ACTIVITY THERAPY NOTE Date of Admission: 10/29/2018 Date of AT Assessment: 10/31/2018 Goal aimed: to increase stress management and recreation education. Initial goal: Pt. will participate in at least three activity groups sessions per week. Weekly progress towards goal: achieved Group participation level: moderate Weekly highlights: coloring eggs on Saturday, requesting songs for the group Behaviors observed: negative response to staff comment during group when engaged- Pt. left group angry, often leaves group once it's started Plan: no change to goal Beneficial adaptations: possible male care
--- NOTE | 2018-11-06 09:58 | NUR ---
WEEKLY NOTE: Pt is talkative and very flirtatious with female peers. Pt eats 100% and sleeps 6 hours on average. Pt has moderate group participation and is redirected for having some borderline inappropriate comments that he does not appear to recognize. Pt is on Cymbalta, Abilify, and has requested medication to "forget about the opposite sex". Provera will be started to aid in pt sexual inappropriate mannerisms. Pt is medication compliant. ELOS for pt return to [facility] is for the latter part of next week.
--- NOTE | 2018-11-06 11:12 | NUR ---
WALDEMAR contacted Maria G at the [facility] to give her a pt. update with information from treatment team. WALDEMAR contacted WALDEMAR Carlos at [facility], to update her on pt. progress. Breanna requested updated records be faxed, which WALDEMAR will do today.
[2018-11-06] MEDS: KETOCONAZOLE 2% SHAMPOO 120ML BOTTLE. TP SCH (16:00)
[2018-11-06 16:16] VITALS: BP 125/76
--- NOTE | 2018-11-06 16:20 | NUR ---
WALDEMAR had an extensive conversation with pt., due to pt. requesting a new social work specialist because of "personal issues" with this social work specialist. Pt. finally stated his attraction towards this social work specialist. "You are nice and pretty." He also mentioned something regarding an attraction "when you play with your hair". WALDEMAR told pt. it was important to remember to keep things professional and that these are the skills he needs to be working on for when he discharges back to his facility. He said sometimes he wish he were just, pt. then put his two fingers up to his head like a gun. WALDEMAR reminded pt. it is important to find martell in the small things and that he needed to give his new medication a chance to take affect. WALDEMAR reported this information to nursing staff.
--- NOTE | 2018-11-06 18:21 | NUR ---
Pt compliant with meds and assessment, interactive. Pt has been flirting a lot with Daniela, sits with her during meal periods and in dayroom at times. Nurse heard Daniela say "you're so bad". When nurse rounded the corner both patients were laughing and sitting together in same chair together. Pt Eduardo became a little defensive when questioned, Daniela was seemingly naive but embarrassed by nurse questioning seating arrangement. Additional chair retrieved.
[2018-11-06] MEDS: ATORVASTATIN CALCIUM 10 MG TABLET. PO SCH (19:33)
[2018-11-06] MEDS: traZODone 50 MG TABLET. PO SCH (19:33)
[2018-11-06] MEDS: IBUPROFEN 400 MG TABLET. PO PRN (20:17)
[2018-11-06] MEDS: traZODone 50 MG TABLET. PO PRN (22:29)
--- NOTE | 2018-11-06 22:57 | PDOC ---
Exam Note: David Note: Please also refer to the separate dictated note~for this date of service dictated separately.~Patient seen individually. Discussed the patient with Nursing staff reviewed the chart.~Reviewed interim history and current functioning. Reviewed vital signs,~Labs/ Radiology~and current medications noted below. Continue current treatment with the changes noted in the dictated addendum note Assessment: Vital Signs: Vital Signs Date Time Temp Pulse Resp B/P (MAP) Pulse Ox O2 Delivery O2 Flow Rate FiO2 11/06/18 16:16 97.9 106 20 125/76 (92) 94 Room Air I&O Intake and Output 11/06/18 07:00 Intake Total 1380 ml Output Total 500 ml Balance 880 ml Intake Oral 1380 ml Output Urine Total 500 ml # Voids 1 Labs: Laboratory Tests Test 11/06/18 06:32 White Blood Count 8.0 x10^3/uL (4.0-11.0) Red Blood Count 5.51 x10^6/uL (4.30-5.70) Hemoglobin 14.9 g/dL (13.0-17.5) Hematocrit 44.8 % (39.0-53.0) Mean Corpuscular Volume 81 fL (79-100) Mean Corpuscular Hemoglobin 27 pg (25-35) Mean Corpuscular Hemoglobin Concent 33 g/dL (31-37) Red Cell Distribution Width 15.1 % (11.5-14.5) H Platelet Count 278 x10^3/uL (140-400) Neutrophils (%) (Auto) 59 % (31-73) Lymphocytes (%) (Auto) 29 % (24-48) Monocytes (%) (Auto) 8 % (0-9) Eosinophils (%) (Auto) 4 % (0-3) H Basophils (%) (Auto) 1 % (0-3) Neutrophils # (Auto) 4.8 x10^3uL (1.8-7.7) Lymphocytes # (Auto) 2.3 x10^3/uL (1.0-4.8) Monocytes # (Auto) 0.6 x10^3/uL (0.0-1.1) Eosinophils # (Auto) 0.3 x10^3/uL (0.0-0.7) Basophils # (Auto) 0.0 x10^3/uL (0.0-0.2) Sodium Level 142 mmol/L (136-145) Potassium Level 3.6 mmol/L (3.5-5.1) Chloride Level 104 mmol/L (98-107) Carbon Dioxide Level 29 mmol/L (21-32) Anion Gap 9 (6-14) Blood Urea Nitrogen 11 mg/dL (8-26) Creatinine 0.7 mg/dL (0.7-1.3) Estimated GFR (Cockcroft-Gault) 112.1 BUN/Creatinine Ratio 16 (6-20) Glucose Level 97 mg/dL (70-99) Calcium Level 8.9 mg/dL (8.5-10.1) Total Bilirubin 0.4 mg/dL (0.2-1.0) Aspartate Amino Transferase (AST) 17 U/L (15-37) Alanine Aminotransferase (ALT) 29 U/L (16-63) Alkaline Phosphatase 129 U/L (46-116) H Total Protein 7.1 g/dL (6.4-8.2) Albumin 3.1 g/dL (3.4-5.0) L Albumin/Globulin Ratio 0.8 (1.0-1.7) L Current Medications: Meds: Current Medications Acetaminophen (Tylenol) 650 mg PRN Q6HRS PRN PO PAIN / TEMP Last administered on 11/03/18at 20:40; Start 10/29/18 at 15:00; Stop 11/05/18 at 16:20; Status DC Multi-Ingredient Ointment (Analgesic [place]) 1 yoselin PRN QID PRN TP MUSCLE PAIN; Start 10/29/18 at 15:00 Al Hydroxide/Mg Hydroxide (Mylanta Plus Xs) 15 ml PRN AFTMEALHC PRN PO DYSPEPSIA; Start 10/29/18 at 15:00 Magnesium Hydroxide (Milk Of Magnesia) 2,400 mg PRN QHS PRN PO CONSTIPATION; Start 10/29/18 at 15:00 Ketoconazole (Nizoral 2% Shampoo) 1 yoselin QMTH TP Last administered on 11/03/18at 16:00; Start 10/30/18 at 16:00 Oxybutynin Chloride (Ditropan) 5 mg DAILY PO Last administered on 11/06/18at 07:33; Start 10/30/18 at 09:00 Simethicone (Gas-X) 80 mg PRN TID PRN PO GAS / BLOATING; Start 10/29/18 at 15:15 Amlodipine Besylate (Norvasc) 5 mg DAILY PO Last administered on 11/06/18 07:33; Start 10/30/18 at 09:00 Atorvastatin Calcium (Lipitor) 10 mg QHS PO Last administered on 11/06/18 19:33; Start 10/29/18 at 21:00 Artificial Tears (Refresh Classic) 1 drop PRN QID PRN OU DRY EYE; Start 10/29/18 at 16:15 Clotrimazole (Lotrimin) 1 yoselin PRN TID PRN TP RASH; Start 10/29/18 at 21:00 Duloxetine HCl (Cymbalta) 90 mg DAILY PO Last administered on 11/06/18 07:34; Start 10/30/18 at 09:00 Pantoprazole Sodium (Protonix) 40 mg DAILYAC PO Last administered on 11/06/18 07:34; Start 10/30/18 at 07:30 Nystatin (Nystop) 1 yoselin BID TP Last administered on 11/06/18 19:33; Start 10/30/18 at 21:00 Aripiprazole (Abilify) 5 mg DAILY PO Last administered on 11/02/18 08:07; Start 11/02/18 at 09:00; Stop 11/02/18 at 17:44; Status DC Aripiprazole (Abilify) 10 mg DAILY PO Last administered on 11/03/18 08:08; Start 11/03/18 at 09:00; Stop 11/03/18 at 16:48; Status DC Aripiprazole (Abilify) 10 mg DAILY PO Last administered on 11/06/18 07:33; Start 11/04/18 at 09:00 Tramadol HCl (Ultram) 50 mg PRN Q6HRS PRN PO PAIN Last administered on 20:04; Start 11/04/18 at 17:45; Stop 11/05/18 at 16:20; Status DC Guaifenesin (Robitussin Dm) 10 ml PRN Q6HRS PRN PO COUGH; Start 11/04/18 at 17:45 Ibuprofen (Motrin) 400 mg PRN Q4HRS PRN PO INFLAMMATION Last administered on 11/06/18at 20:17; Start 11/05/18 at 16:30 Benzonatate (Tessalon Perle) 200 mg PRN TID PRN PO COUGH; Start 11/05/18 at 16:30 Docusate Sodium (Colace) 100 mg DAILY PO Last administered on 11/06/18at 07:37; Start 11/06/18 at 09:00 Betamethasone/ Clotrimazole (Lotrisone) 1 yoselin BID TP Last administered on 11/06/18at 19:34; Start 11/05/18 at 21:00 Trazodone HCl (Desyrel) 50 mg QHS PO Last administered on 11/06/18 19:33; Start 11/05/18 at 21:00 Trazodone HCl (Desyrel) 50 mg PRN QHS PRN PO INSOMNIA Last administered on 11/06/18at 22:29; Start 11/05/18 at 16:45 Medroxyprogesterone Acetate (Provera) 2.5 mg DAILY PO Last administered on 11/06/18at 12:24; Start 11/06/18 at 12:15; Stop 11/08/18 at 21:00 Medroxyprogesterone Acetate (Provera) 5 mg DAILY PO ; Start 11/09/18 at 09:00 Active Scripts Active Reported Ketoconazole 120 Ml Shampoo 1 Yoselin TP TWICE WEEKLY Refresh Optive Eye Drops (Carboxymethylcellulos/Glycerin) 15 Ml Drops 1 Drop EACHEYE PRN QID PRN Simethicone 80 Mg Tab.chew 80 Mg PO PRN TID PRN Oxybutynin Chloride 5 Mg Tablet 5 Mg PO DAILY Omeprazole 20 Mg Capsule. 20 Mg PO DAILY07 Duloxetine Hcl 30 Mg Capsule. 90 Mg PO DAILY Clotrimazole 15 Gm Cream..g. 1 Yoselin TP PRN TID PRN Atorvastatin Calcium 10 Mg Tablet 10 Mg PO QHS Amlodipine Besylate 5 Mg Tablet 5 Mg PO DAILY I have reviewed the current psychotropics carefully including drug interactions. Risk benefit ratio favors no change other than as noted in my dictated progress note. Diagnosis: Problems: (1) Anxiety disorder (2) Impulse control disorder (3) Major depressive disorder, recurrent episode (4) Mild cognitive impairment ROSALINDA GARCIA MD Nov 06, 2018 22:57
--- NOTE | 2018-11-07 00:32 | NUR ---
Pt withdrawn to room at shift change. Pt with a flat, depressed affect but pleasant with interaction. Pt cooperative with assessment and compliant with medications administered whole. PRN Motrin administered as ordered for c/o back pain.
[2018-11-07 06:11] VITALS: BP 155/92
[2018-11-07] MEDS: ARIPiprazole 10 MG TABLET PO SCH (08:27)
[2018-11-07] MEDS: OXYBUTYNIN CHLORIDE 5 MG TABLET PO SCH (08:28)
[2018-11-07] MEDS: DULoxetine HCL 30 MG CAPSULE.DR PO SCH (08:28)
[2018-11-07] MEDS: DOCUSATE SODIUM 100 MG CAPSULE PO SCH (08:28)
[2018-11-07] MEDS: CLOTRIMAZOLE/BETAMETH 1%-0.05% TOPICAL CREAM 15GM TUBE. TP SCH ×2 (08:28→19:42)
[2018-11-07] MEDS: amLODIPine BESYLATE 5 MG TABLET PO SCH (08:28)
[2018-11-07] MEDS: PANTOPRAZOLE 40 MG TABLET. PO SCH (08:28)
[2018-11-07] MEDS: NYSTATIN TOPICAL POWDER 15GM BOTTLE. TP SCH ×2 (08:29→19:42)
[2018-11-07 16:12] VITALS: BP 137/85
--- NOTE | 2018-11-07 18:06 | NUR ---
Nursing Note Pt makes comments to female staff, bordering on inappropriate at times. Redirects easily.
[2018-11-07] MEDS: traZODone 50 MG TABLET. PO SCH (19:41)
[2018-11-07] MEDS: ATORVASTATIN CALCIUM 10 MG TABLET. PO SCH (19:41)
[2018-11-07] MEDS: IBUPROFEN 400 MG TABLET. PO PRN (20:35)
--- NOTE | 2018-11-07 21:25 | PN ---
DATE: 11/05/2018 PSYCHIATRIC PROGRESS NOTE This late entry 11/05/2018 covers elements not covered in my initial note. SUBJECTIVE: I met with the patient in the evening. The patient slept just 2 hours previous night. He has had some constipation, received stool softener, and we will start trazodone 50 mg at bedtime p.r.n., may repeat x 1 for insomnia; tramadol has been changed to ibuprofen. He makes some inappropriate sexual comments at times, but redirects and I processed this with him individually. REVIEW OF SYSTEMS: No CV, , pulmonary, eye system symptoms on review. Ambulation impaired, in wheelchair. MENTAL STATUS EXAM: Oriented reasonably. Speech is coherent, abstraction fair, computation impaired, language function intact, attention span short. Mood and affect somewhat labile at times. LABORATORY DATA: Reviewed. IMPRESSION: Bipolar 1 disorder, mixed; anxiety disorder, unspecified; impulse control disorder, unspecified. PLAN: Continue current psychotropics. If sexually inappropriate behaviors persist, we may consider addition of Provera. He also remains on Cymbalta 90 mg a day, Abilify 10 mg a day. MAN Haylie GARCIA MD DR: EDDIE/agnieszka JOB#: [id number] / [id number]
--- NOTE | 2018-11-07 21:27 | PN ---
DATE: 11/06/2018 PSYCHIATRIC PROGRESS NOTE This late entry 11/06/2018 covers elements not covered in my initial note. SUBJECTIVE: I met with the patient in early afternoon and staffed at treatment team meeting in the morning. The patient is sleeping about 6 hours at night. Appetite 100%. Continues to make inappropriate sexual comments, redirects frequently. REVIEW OF SYSTEMS: Ambulation impaired, in wheelchair. No CV, , pulmonary, eye system symptoms on review. MENTAL STATUS EXAM: Oriented to himself and situation. Speech coherent, can be a little pressured at times. Abstraction fair, computation impaired, language function intact. Mood and affect still somewhat labile. LABORATORY DATA: Reviewed. IMPRESSION: Unchanged from initial note. PLAN: No change from initial note and start Provera 2.5 mg a day, increasing to 5 mg a day in 3 days. Maintain Abilify, Cymbalta unchanged. MAN Haylie GARCIA MD DR: EDDIE/agnieszka JOB#: [id number] / [id number]
--- NOTE | 2018-11-07 22:38 | PDOC ---
Exam Note: David Note: Please also refer to the separate dictated note~for this date of service dictated separately.~Patient seen individually. Discussed the patient with Nursing staff reviewed the chart.~Reviewed interim history and current functioning. Reviewed vital signs,~Labs/ Radiology~and current medications noted below. Continue current treatment with the changes noted in the dictated addendum note Assessment: Vital Signs: Vital Signs Date Time Temp Pulse Resp B/P (MAP) Pulse Ox O2 Delivery O2 Flow Rate FiO2 11/07/18 16:12 98.0 104 20 137/85 (102) 94 Room Air I&O Intake and Output 11/07/18 07:00 Intake Total 1440 ml Output Total 900 ml Balance 540 ml Intake Oral 1440 ml Output Urine Total 900 ml Current Medications: Meds: Current Medications Acetaminophen (Tylenol) 650 mg PRN Q6HRS PRN PO PAIN / TEMP Last administered on 11/03/18at 20:40; Start 10/29/18 at 15:00; Stop 11/05/18 at 16:20; Status DC Multi-Ingredient Ointment (Analgesic [place]) 1 yoselin PRN QID PRN TP MUSCLE PAIN; Start 10/29/18 at 15:00 Al Hydroxide/Mg Hydroxide (Mylanta Plus Xs) 15 ml PRN AFTMEALHC PRN PO DYSPEPSIA; Start 10/29/18 at 15:00 Magnesium Hydroxide (Milk Of Magnesia) 2,400 mg PRN QHS PRN PO CONSTIPATION; Start 10/29/18 at 15:00 Ketoconazole (Nizoral 2% Shampoo) 1 yoselin QMTH TP Last administered on 11/03/18at 16:00; Start 10/30/18 at 16:00 Oxybutynin Chloride (Ditropan) 5 mg DAILY PO Last administered on 11/07/18 08:28; Start 10/30/18 at 09:00 Simethicone (Gas-X) 80 mg PRN TID PRN PO GAS / BLOATING; Start 10/29/18 at 15:15 Amlodipine Besylate (Norvasc) 5 mg DAILY PO Last administered on 11/07/18at 08:28; Start 10/30/18 at 09:00 Atorvastatin Calcium (Lipitor) 10 mg QHS PO Last administered on 11/07/18at 19:41; Start 10/29/18 at 21:00 Artificial Tears (Refresh Classic) 1 drop PRN QID PRN OU DRY EYE; Start 10/29/18 at 16:15 Clotrimazole (Lotrimin) 1 yoselin PRN TID PRN TP RASH; Start 10/29/18 at 21:00; Stop 11/06/18 at 23:14; Status DC Duloxetine HCl (Cymbalta) 90 mg DAILY PO Last administered on 11/07/18 08:28; Start 10/30/18 at 09:00 Pantoprazole Sodium (Protonix) 40 mg DAILYAC PO Last administered on 11/07/18 08:28; Start 10/30/18 at 07:30 Nystatin (Nystop) 1 yoselin BID TP Last administered on 11/07/18 19:42; Start 10/30/18 at 21:00 Aripiprazole (Abilify) 5 mg DAILY PO Last administered on 11/02/18 08:07; Start 11/02/18 at 09:00; Stop 11/02/18 at 17:44; Status DC Aripiprazole (Abilify) 10 mg DAILY PO Last administered on 11/03/18 08:08; Start 11/03/18 at 09:00; Stop 11/03/18 at 16:48; Status DC Aripiprazole (Abilify) 10 mg DAILY PO Last administered on 11/07/18 08:27; Start 11/04/18 at 09:00 Tramadol HCl (Ultram) 50 mg PRN Q6HRS PRN PO PAIN Last administered on 11/04/18 20:04; Start 11/04/18 at 17:45; Stop 11/05/18 at 16:20; Status DC Guaifenesin (Robitussin Dm) 10 ml PRN Q6HRS PRN PO COUGH; Start 11/04/18 at 17:45 Ibuprofen (Motrin) 400 mg PRN Q4HRS PRN PO INFLAMMATION Last administered on 11/07/18at 20:35; Start 11/05/18 at 16:30 Benzonatate (Tessalon Perle) 200 mg PRN TID PRN PO COUGH; Start 11/05/18 at 16:30 Docusate Sodium (Colace) 100 mg DAILY PO Last administered on 4/26/19at 08:28; Start 11/06/18 at 09:00 Betamethasone/ Clotrimazole (Lotrisone) 1 yoselin BID TP Last administered on 11/07/18at 19:42; Start 11/05/18 at 21:00 Trazodone HCl (Desyrel) 50 mg QHS PO Last administered on 11/07/18 19:41; Start 11/05/18 at 21:00 Trazodone HCl (Desyrel) 50 mg PRN QHS PRN PO INSOMNIA Last administered on 11/06/18at 22:29; Start 11/05/18 at 16:45 Medroxyprogesterone Acetate (Provera) 2.5 mg DAILY PO Last administered on 11/07/18 08:27; Start 11/06/18 at 12:15; Stop 11/08/18 at 21:00 Medroxyprogesterone Acetate (Provera) 5 mg DAILY PO ; Start 11/09/18 at 09:00 Active Scripts Active Reported Ketoconazole 120 Ml Shampoo 1 Yoselin TP TWICE WEEKLY Refresh Optive Eye Drops (Carboxymethylcellulos/Glycerin) 15 Ml Drops 1 Drop EACHEYE PRN QID PRN Simethicone 80 Mg Tab.chew 80 Mg PO PRN TID PRN Oxybutynin Chloride 5 Mg Tablet 5 Mg PO DAILY Omeprazole 20 Mg Capsule.dr 20 Mg PO DAILY07 Duloxetine Hcl 30 Mg Capsule.dr 90 Mg PO DAILY Clotrimazole 15 Gm Cream..g. 1 Yoselin TP PRN TID PRN Atorvastatin Calcium 10 Mg Tablet 10 Mg PO QHS Amlodipine Besylate 5 Mg Tablet 5 Mg PO DAILY I have reviewed the current psychotropics carefully including drug interactions. Risk benefit ratio favors no change other than as noted in my dictated progress note. Diagnosis: Problems: (1) Anxiety disorder (2) Impulse control disorder (3) Major depressive disorder, recurrent episode (4) Mild cognitive impairment ROSALINDA GARCIA MD Nov 07, 2018 22:38
--- NOTE | 2018-11-07 23:38 | NUR ---
Patient was cooperative this evening with taking his evening/HS medications. Patient did not appear in any distress, he was watching the Movie and interacting appropriately with the other patients.
[2018-11-08 06:18] VITALS: BP 152/90
[2018-11-08] MEDS: ARIPiprazole 10 MG TABLET PO SCH (08:40)
[2018-11-08] MEDS: PANTOPRAZOLE 40 MG TABLET. PO SCH (08:40)
[2018-11-08] MEDS: DULoxetine HCL 30 MG CAPSULE.DR PO SCH (08:41)
[2018-11-08] MEDS: DOCUSATE SODIUM 100 MG CAPSULE PO SCH (08:41)
[2018-11-08] MEDS: OXYBUTYNIN CHLORIDE 5 MG TABLET PO SCH (08:41)
[2018-11-08] MEDS: amLODIPine BESYLATE 5 MG TABLET PO SCH (08:42)
[2018-11-08] MEDS: NYSTATIN TOPICAL POWDER 15GM BOTTLE. TP SCH ×2 (09:00→19:07)
[2018-11-08] MEDS: CLOTRIMAZOLE/BETAMETH 1%-0.05% TOPICAL CREAM 15GM TUBE. TP SCH ×2 (09:00→19:07)
--- NOTE | 2018-11-08 13:51 | NUR ---
Nursing Note Pt is intrusive with peers. Gets involved in affairs that do not concern him most of the day. Redirects easily.
[2018-11-08 15:54] VITALS: BP 164/97
--- NOTE | 2018-11-08 18:41 | NUR ---
Patient was reportedly calling Kenrick nelson and kelly in dining room. This nurse spoke to him and told him that behavior was inappropriate and patient stated " I understand I overstepped my bounds."
[2018-11-08] MEDS: ATORVASTATIN CALCIUM 10 MG TABLET. PO SCH (19:05)
[2018-11-08] MEDS: traZODone 50 MG TABLET. PO SCH (19:05)
[2018-11-08] MEDS: IBUPROFEN 400 MG TABLET. PO PRN (20:43)
--- NOTE | 2018-11-08 22:45 | NUR ---
Pt. was calm and was able to voice his needs to the staff. Pt. was compliant with taking his medications this evening. PRN pain medications were given for chronic pain, see MAR.
--- NOTE | 2018-11-08 22:48 | PDOC ---
Exam Note: David Note: Please also refer to the separate dictated note~for this date of service dictated separately.~Patient seen individually. Discussed the patient with Nursing staff reviewed the chart.~Reviewed interim history and current functioning. Reviewed vital signs,~Labs/ Radiology~and current medications noted below. Continue current treatment with the changes noted in the dictated addendum note Assessment: Vital Signs: Vital Signs Date Time Temp Pulse Resp B/P (MAP) Pulse Ox O2 Delivery O2 Flow Rate FiO2 11/08/18 15:54 97.4 106 22 164/97 (119) 95 Room Air I&O Intake and Output 11/08/18 07:00 Intake Total 1800 ml Balance 1800 ml Intake Oral 1800 ml Current Medications: Meds: Current Medications Acetaminophen (Tylenol) 650 mg PRN Q6HRS PRN PO PAIN / TEMP Last administered on 11/03/18at 20:40; Start 10/29/18 at 15:00; Stop 11/05/18 at 16:20; Status DC Multi-Ingredient Ointment (Analgesic [place]) 1 yoselin PRN QID PRN TP MUSCLE PAIN; Start 10/29/18 at 15:00 Al Hydroxide/Mg Hydroxide (Mylanta Plus Xs) 15 ml PRN AFTMEALHC PRN PO DYSPEPSIA; Start 10/29/18 at 15:00 Magnesium Hydroxide (Milk Of Magnesia) 2,400 mg PRN QHS PRN PO CONSTIPATION; Start 10/29/18 at 15:00 Ketoconazole (Nizoral 2% Shampoo) 1 yoselin QMTH TP Last administered on 11/03/18at 16:00; Start 10/30/18 at 16:00 Oxybutynin Chloride (Ditropan) 5 mg DAILY PO Last administered on 11/08/18at 08:41; Start 10/30/18 at 09:00 Simethicone (Gas-X) 80 mg PRN TID PRN PO GAS / BLOATING; Start 10/29/18 at 15:15 Amlodipine Besylate (Norvasc) 5 mg DAILY PO Last administered on 11/08/18at 08:42; Start 10/30/18 at 09:00 Atorvastatin Calcium (Lipitor) 10 mg QHS PO Last administered on 11/08/18at 19:05; Start 10/29/18 at 21:00 Artificial Tears (Refresh Classic) 1 drop PRN QID PRN OU DRY EYE; Start 10/29/18 at 16:15 Clotrimazole (Lotrimin) 1 yoselin PRN TID PRN TP RASH; Start 10/29/18 at 21:00; Stop 11/06/18 at 23:14; Status DC Duloxetine HCl (Cymbalta) 90 mg DAILY PO Last administered on 11/08/18 08:41; Start 10/30/18 at 09:00 Pantoprazole Sodium (Protonix) 40 mg DAILYAC PO Last administered on 11/08/18 08:40; Start 10/30/18 at 07:30 Nystatin (Nystop) 1 yoselin BID TP Last administered on 11/08/18 19:07; Start 10/30/18 at 21:00 Aripiprazole (Abilify) 5 mg DAILY PO Last administered on 11/02/18 08:07; Start 11/02/18 at 09:00; Stop 11/02/18 at 17:44; Status DC Aripiprazole (Abilify) 10 mg DAILY PO Last administered on 11/03/18 08:08; Start 11/03/18 at 09:00; Stop 11/03/18 at 16:48; Status DC Aripiprazole (Abilify) 10 mg DAILY PO Last administered on 11/08/18 08:40; Start 11/04/18 at 09:00 Tramadol HCl (Ultram) 50 mg PRN Q6HRS PRN PO PAIN Last administered on 11/04/18 20:04; Start 11/04/18 at 17:45; Stop 11/05/18 at 16:20; Status DC Guaifenesin (Robitussin Dm) 10 ml PRN Q6HRS PRN PO COUGH; Start 11/04/18 at 17:45 Ibuprofen (Motrin) 400 mg PRN Q4HRS PRN PO INFLAMMATION Last administered on 11/08/18at 20:43; Start 11/05/18 at 16:30 Benzonatate (Tessalon Perle) 200 mg PRN TID PRN PO COUGH; Start 11/05/18 at 16:30 Docusate Sodium (Colace) 100 mg DAILY PO Last administered on 11/08/18at 08:41; Start 11/06/18 at 09:00 Betamethasone/ Clotrimazole (Lotrisone) 1 yoselin BID TP Last administered on 11/08/18at 19:07; Start 11/05/18 at 21:00 Trazodone HCl (Desyrel) 50 mg QHS PO Last administered on 11/08/18at 19:05; Start 11/05/18 at 21:00 Trazodone HCl (Desyrel) 50 mg PRN QHS PRN PO INSOMNIA Last administered on 11/06/18at 22:29; Start 11/05/18 at 16:45 Medroxyprogesterone Acetate (Provera) 2.5 mg DAILY PO Last administered on 11/08/18at 08:42; Start 11/06/18 at 12:15; Stop 11/08/18 at 21:00; Status DC Medroxyprogesterone Acetate (Provera) 5 mg DAILY PO ; Start 11/09/18 at 09:00 Active Scripts Active Reported Ketoconazole 120 Ml Shampoo 1 Yoselin TP TWICE WEEKLY Refresh Optive Eye Drops (Carboxymethylcellulos/Glycerin) 15 Ml Drops 1 Drop EAC HEYE PRN QID PRN Simethicone 80 Mg Tab.chew 80 Mg PO PRN TID PRN Oxybutynin Chloride 5 Mg Tablet 5 Mg PO DAILY Omeprazole 20 Mg Capsule.dr 20 Mg PO DAILY07 Duloxetine Hcl 30 Mg Capsule.dr 90 Mg PO DAILY Clotrimazole 15 Gm Cream..g. 1 Yoselin TP PRN TID PRN Atorvastatin Calcium 10 Mg Tablet 10 Mg PO QHS Amlodipine Besylate 5 Mg Tablet 5 Mg PO DAILY I have reviewed the current psychotropics carefully including drug interactions. Risk benefit ratio favors no change other than as noted in my dictated progress note. Diagnosis: Problems: (1) Anxiety disorder (2) Impulse control disorder (3) Major depressive disorder, recurrent episode (4) Mild cognitive impairment ROSALINDA GARCIA MD Nov 08, 2018 22:48
[2018-11-09 05:51] VITALS: BP 174/69
[2018-11-09] MEDS: OXYBUTYNIN CHLORIDE 5 MG TABLET PO SCH (08:13)
[2018-11-09] MEDS: DOCUSATE SODIUM 100 MG CAPSULE PO SCH (08:13)
[2018-11-09] MEDS: PANTOPRAZOLE 40 MG TABLET. PO SCH (08:13)
[2018-11-09] MEDS: ARIPiprazole 10 MG TABLET PO SCH (08:13)
[2018-11-09] MEDS: DULoxetine HCL 30 MG CAPSULE.DR PO SCH (08:13)
[2018-11-09] MEDS: amLODIPine BESYLATE 5 MG TABLET PO SCH (08:14)
[2018-11-09] MEDS: medroxyPROGESTERone 5 MG TABLET PO SCH (08:15)
[2018-11-09] MEDS: NYSTATIN TOPICAL POWDER 15GM BOTTLE. TP SCH ×2 (08:15→19:47)
[2018-11-09] MEDS: CLOTRIMAZOLE/BETAMETH 1%-0.05% TOPICAL CREAM 15GM TUBE. TP SCH ×2 (08:16→19:48)
[2018-11-09] MEDS: BENZONATATE 100 MG CAPSULE. PO PRN (09:03)
--- NOTE | 2018-11-09 10:29 | NUR ---
Pt assessed in the hallway for shift assessment. Pt is compliant with medications, however is very intrusive and in multiple pt's rooms, very talkative. Will CTM.
[2018-11-09] MEDS: IBUPROFEN 400 MG TABLET. PO PRN (13:54)
[2018-11-09 16:29] VITALS: BP 142/85
[2018-11-09] MEDS: traZODone 50 MG TABLET. PO SCH (19:47)
[2018-11-09] MEDS: ATORVASTATIN CALCIUM 10 MG TABLET. PO SCH (19:47)
--- NOTE | 2018-11-09 23:00 | NUR ---
Pt in bed at shift change. Compliant with staff with shower and during assessment. A little paranoid with medication administration, as it took a couple different attempts for pt to take meds. Will monitor.
--- NOTE | 2018-11-09 23:08 | PDOC ---
Exam Note: David Note: Please also refer to the separate dictated note~for this date of service dictated separately.~Patient seen individually. Discussed the patient with Nursing staff reviewed the chart.~Reviewed interim history and current functioning. Reviewed vital signs,~Labs/ Radiology~and current medications noted below. Continue current treatment with the changes noted in the dictated addendum note Assessment: Vital Signs: Vital Signs Date Time Temp Pulse Resp B/P (MAP) Pulse Ox O2 Delivery O2 Flow Rate FiO2 11/09/18 16:29 97.6 100 24 142/85 (104) 93 11/08/18 15:54 Room Air I&O Intake and Output 11/09/18 06:59 Intake Total 1940 ml Output Total 1300 ml Balance 640 ml Intake Oral 1940 ml Output Urine Total 1300 ml # Bowel Movements 1 Current Medications: Meds: Current Medications Acetaminophen (Tylenol) 650 mg PRN Q6HRS PRN PO PAIN / TEMP Last administered on 11/03/18 20:40; Start 10/29/18 at 15:00; Stop 11/05/18 at 16:20; Status DC Multi-Ingredient Ointment (Analgesic [place]) 1 yoselin PRN QID PRN TP MUSCLE PAIN; Start 10/29/18 at 15:00 Al Hydroxide/Mg Hydroxide (Mylanta Plus Xs) 15 ml PRN AFTMEALHC PRN PO DYSPEPSIA; Start 10/29/18 at 15:00 Magnesium Hydroxide (Milk Of Magnesia) 2,400 mg PRN QHS PRN PO CONSTIPATION; Start 10/29/18 at 15:00 Ketoconazole (Nizoral 2% Shampoo) 1 yoselin QMTH TP Last administered on 11/03/18at 16:00; Start 10/30/18 at 16:00 Oxybutynin Chloride (Ditropan) 5 mg DAILY PO Last administered on 11/09/18at 08:13; Start 10/30/18 at 09:00 Simethicone (Gas-X) 80 mg PRN TID PRN PO GAS / BLOATING; Start 10/29/18 at 15 :15 Amlodipine Besylate (Norvasc) 5 mg DAILY PO Last administered on 11/09/18at 08:14; Start 10/30/18 at 09:00 Atorvastatin Calcium (Lipitor) 10 mg QHS PO Last administered on 11/09/18 19:47; Start 10/29/18 at 21:00 Artificial Tears (Refresh Classic) 1 drop PRN QID PRN OU DRY EYE; Start 10/29/18 at 16:15 Clotrimazole (Lotrimin) 1 yoselin PRN TID PRN TP RASH; Start 10/29/18 at 21:00; Stop 11/06/18 at 23:14; Status DC Duloxetine HCl (Cymbalta) 90 mg DAILY PO Last administered on 11/09/18 08:13; Start 10/30/18 at 09:00 Pantoprazole Sodium (Protonix) 40 mg DAILYAC PO Last administered on 11/09/18 08:13; Start 10/30/18 at 07:30 Nystatin (Nystop) 1 yoselin BID TP Last administered on 11/09/18 19:47; Start 10/30/18 at 21:00 Aripiprazole (Abilify) 5 mg DAILY PO Last administered on 11/02/18 08:07; Start 11/02/18 at 09:00; Stop 11/02/18 at 17:44; Status DC Aripiprazole (Abilify) 10 mg DAILY PO Last administered on 11/03/18 08:08; Start 11/03/18 at 09:00; Stop 11/03/18 at 16:48; Status DC Aripiprazole (Abilify) 10 mg DAILY PO Last administered on 11/09/18 08:13; Start 11/04/18 at 09:00 Tramadol HCl (Ultram) 50 mg PRN Q6HRS PRN PO PAIN Last administered on 11/04/18 20:04; Start 11/04/18 at 17:45; Stop 11/05/18 at 16:20; Status DC Guaifenesin (Robitussin Dm) 10 ml PRN Q6HRS PRN PO COUGH; Start 11/04/18 at 17:45 Ibuprofen (Motrin) 400 mg PRN Q4HRS PRN PO INFLAMMATION Last administered on 11/09/18 13:54; Start 11/05/18 at 16:30 Benzonatate (Tessalon Perle) 200 mg PRN TID PRN PO COUGH Last administered on 11/09/18 09:03; Start 11/05/18 at 16:30 Docusate Sodium (Colace) 100 mg DAILY PO Last administered on 11/09/18 08:13; Start 11/06/18 at 09:00 Betamethasone/ Clotrimazole (Lotrisone) 1 yoselin BID TP Last administered on 11/09/18 19:48; Start 11/05/18 at 21:00 Trazodone HCl (Desyrel) 50 mg QHS PO Last administered on 11/09/18 19:47; Start 11/05/18 at 21:00 Trazodone HCl (Desyrel) 50 mg PRN QHS PRN PO INSOMNIA Last administered on 11/06/18 22:29; Start 11/05/18 at 16:45 Medroxyprogesterone Acetate (Provera) 2.5 mg DAILY PO Last administered on 11/08/18 08:42; Start 11/06/18 at 12:15; Stop 11/08/18 at 21:00; Status DC Medroxyprogesterone Acetate (Provera) 5 mg DAILY PO Last administered on 11/09/18 08:15; Start 11/09/18 at 09:00 Active Scripts Active Reported Ketoconazole 120 Ml Shampoo 1 Yoselin TP TWICE WEEKLY Refresh Optive Eye Drops (Carboxymethylcellulos/Glycerin) 15 Ml Drops 1 Drop EACHEYE PRN QID PRN Simethicone 80 Mg Tab.chew 80 Mg PO PRN TID PRN Oxybutynin Chloride 5 Mg Tablet 5 Mg PO DAILY Omeprazole 20 Mg Capsule.dr 20 Mg PO DAILY07 Duloxetine Hcl 30 Mg Capsule.dr 90 Mg PO DAILY Clotrimazole 15 Gm Cream..g. 1 Yoselin TP PRN TID PRN Atorvastatin Calcium 10 Mg Tablet 10 Mg PO QHS Amlodipine Besylate 5 Mg Tablet 5 Mg PO DAILY I have reviewed the current psychotropics carefully including drug interactions. Risk benefit ratio favors no change other than as noted in my dictated progress note. Diagnosis: Problems: (1) Anxiety disorder (2) Impulse control disorder (3) Major depressive disorder, recurrent episode (4) Mild cognitive impairment ROSALINDA GARCIA MD Nov 09, 2018 23:08
[2018-11-10 05:42] VITALS: BP 159/89
[2018-11-10] MEDS: medroxyPROGESTERone 5 MG TABLET PO SCH (07:33)
[2018-11-10] MEDS: OXYBUTYNIN CHLORIDE 5 MG TABLET PO SCH (07:33)
[2018-11-10] MEDS: DOCUSATE SODIUM 100 MG CAPSULE PO SCH (07:33)
[2018-11-10] MEDS: PANTOPRAZOLE 40 MG TABLET. PO SCH (07:33)
[2018-11-10] MEDS: ARIPiprazole 10 MG TABLET PO SCH (07:33)
[2018-11-10] MEDS: amLODIPine BESYLATE 5 MG TABLET PO SCH (07:34)
[2018-11-10] MEDS: DULoxetine HCL 30 MG CAPSULE.DR PO SCH (07:34)
[2018-11-10] MEDS: CLOTRIMAZOLE/BETAMETH 1%-0.05% TOPICAL CREAM 15GM TUBE. TP SCH ×2 (07:34→22:16)
[2018-11-10] MEDS: NYSTATIN TOPICAL POWDER 15GM BOTTLE. TP SCH ×2 (07:34→23:58)
--- NOTE | 2018-11-10 10:04 | NUR ---
WALDEMAR contacted Maria G, transfer nurse at the [facility], to update her on pt. progress and tentative discharge scheduled for 11/14/2018. Maria G reports pt. facility should set up pt. transport back to his facility.
--- NOTE | 2018-11-10 11:49 | NUR ---
NURSING NOTE PT WAS ASSESSED IN DINNING ROOM THIS AM AND WAS COOPERATIVE DURING ASSESSMENT. PT IS COMPLIANT WITH MEDICATIONS THUS FAR. PT IS VERY TALKATIVE AND SPEAKS WITH EVERYONE HE PASSES. PT WAS VOICING CONCERNS ABOUT ANOTHER PTS BUSINESS THIS MORNING THAT DOES NOT CONCERN HIM, TRYING TO HELP ANOTHER MAN FIND HIS . WILL CONTINUE TO MONITOR. REMA BUCIO.
--- NOTE | 2018-11-10 12:03 | NUR ---
WALDEMAR spoke to Breanna, healthcare social worker at [facility], to discuss pt. progress and discharge plan. SW shared [facility] and wanted to know if it was possible while he is in [place]. WALDEMAR passed this information to Breanna, who will determine if that is possible and reports she will call [facility] to [facility] for pt. discharge scheduled for 11/14/2018.
[2018-11-10] MEDS: KETOCONAZOLE 2% SHAMPOO 120ML BOTTLE. TP SCH (13:56)
--- NOTE | 2018-11-10 13:57 | NUR ---
NURSING NOTE SHAMPOO NON-ADMIN SHAMPOO MEDICATION, PT HAD SHOWER LAST NIGHT AND IS NOT DUE TODAY FOR SHOWER. REMA BUCIO.
[2018-11-10 16:48] VITALS: BP 127/83
--- NOTE | 2018-11-10 20:18 | PN ---
DATE: 11/07/2018 PSYCHIATRIC PROGRESS NOTE This late entry 11/07/2018 covers elements not covered in my initial note. SUBJECTIVE: I met with the patient in the evening. The patient slept 5-3/4 hours previous night. He has been started on Provera and is less sexually inappropriate. REVIEW OF SYSTEMS: Ambulation impaired, in wheelchair. No CV, , pulmonary, eye, ENT system symptoms on review. MENTAL STATUS EXAM: Oriented reasonably. Speech is coherent, little pressured at times. Abstraction fair, computation impaired, language function intact, attention span short. Mood and affect somewhat anxious at times. He does complain of a cough and we will start him on Tessalon Perles p.r.n. for this. LABORATORY DATA: Reviewed. IMPRESSION: Unchanged from initial note. PLAN: No change from initial note. MAN Haylie GARCIA MD DR: EDDIE/agnieszka JOB#: [id number] / [id number]
--- NOTE | 2018-11-10 20:42 | PN ---
DATE: 11/08/2018 PSYCHIATRIC PROGRESS NOTE This late entry 11/08/2018 covers elements not covered in my initial note. SUBJECTIVE: I met with the patient in the evening. The patient slept 6-1/2 hours previous night. He has had some cough, has been started on Tessalon Perles. Impaired ambulation, in wheelchair. REVIEW OF SYSTEMS: No CV, , pulmonary, eye system symptoms on review other than the cough. MENTAL STATUS EXAM: Oriented reasonably. Speech is coherent, abstraction fair, computation somewhat impaired, language function intact, attention span short. Mood and affect less labile. No sexually inappropriate behaviors noted. LABORATORY DATA: Reviewed. IMPRESSION: Unchanged from initial note. PLAN: No change from initial note. MAN Haylie GARCIA MD DR: EDDIE/agnieszka JOB#: [id number] / [id number]
[2018-11-10] MEDS: ATORVASTATIN CALCIUM 10 MG TABLET. PO SCH (20:50)
[2018-11-10] MEDS: traZODone 50 MG TABLET. PO SCH (20:50)
[2018-11-10] MEDS: IBUPROFEN 400 MG TABLET. PO PRN (20:54)
--- NOTE | 2018-11-10 21:36 | PN ---
DATE: 11/09/2018 PSYCHIATRIC PROGRESS NOTE This late entry 11/09/2018 covers elements not covered in my initial note. SUBJECTIVE: I met with the patient in the evening. The patient slept 5-1/2 hours previous night. He has been somewhat intrusive, per nursing report, but not sexually inappropriate. REVIEW OF SYSTEMS: Ambulation impaired, in wheelchair. No CV, , pulmonary, eye system symptoms on review. MENTAL STATUS EXAM: Reasonably oriented. Speech is coherent, a little pressured at times. Abstraction fair, computation impaired, language function intact, attention span short. Mood and affect less labile. LABORATORY DATA: Reviewed. IMPRESSION: Unchanged from initial note. PLAN: No change from initial note. MAN Haylie GARCIA MD DR: EDDIE/agnieszka JOB#: [id number] / [id number]
[2018-11-10] MEDS: BENZONATATE 100 MG CAPSULE. PO PRN (22:20)
--- NOTE | 2018-11-10 22:38 | PDOC ---
Exam Note: David Note: Please also refer to the separate dictated note~for this date of service dictated separately.~Patient seen individually. Discussed the patient with Nursing staff reviewed the chart.~Reviewed interim history and current functioning. Reviewed vital signs,~Labs/ Radiology~and current medications noted below. Continue current treatment with the changes noted in the dictated addendum note Assessment: Vital Signs: Vital Signs Date Time Temp Pulse Resp B/P (MAP) Pulse Ox O2 Delivery O2 Flow Rate FiO2 11/10/18 16:48 97.9 105 20 127/83 (98) 93 11/08/18 15:54 Room Air I&O Intake and Output 11/10/18 07:00 Intake Total 1940 ml Balance 1940 ml Intake Oral 1940 ml Current Medications: Meds: Current Medications Acetaminophen (Tylenol) 650 mg PRN Q6HRS PRN PO PAIN / TEMP Last administered on 11/03/18 20:40; Start 10/29/18 at 15:00; Stop 11/05/18 at 16:20; Status DC Multi-Ingredient Ointment (Analgesic [place]) 1 yoselin PRN QID PRN TP MUSCLE PAIN; Start 10/29/18 at 15:00 Al Hydroxide/Mg Hydroxide (Mylanta Plus Xs) 15 ml PRN AFTMEALHC PRN PO DYSPEPSIA; Start 10/29/18 at 15:00 Magnesium Hydroxide (Milk Of Magnesia) 2,400 mg PRN QHS PRN PO CONSTIPATION; Start 10/29/18 at 15:00 Ketoconazole (Nizoral 2% Shampoo) 1 yoselin QMTH TP Last administered on 11/03/18at 16:00; Start 10/30/18 at 16:00 Oxybutynin Chloride (Ditropan) 5 mg DAILY PO Last administered on 11/10/18 07:33; Start 10/30/18 at 09:00 Simethicone (Gas-X) 80 mg PRN TID PRN PO GAS / BLOATING; Start 10/29/18 at 15:15 Amlodipine Besylate (Norvasc) 5 mg DAILY PO Last administered on 11/10/18 07:34; Start 10/30/18 at 09:00 Atorvastatin Calcium (Lipitor) 10 mg QHS PO Last administered on 11/10/18at 20:50; Start 10/29/18 at 21:00 Artificial Tears (Refresh Classic) 1 drop PRN QID PRN OU DRY EYE; Start 10/29/18 at 16:15 Clotrimazole (Lotrimin) 1 yoselin PRN TID PRN TP RASH; Start 10/29/18 at 21:00; Stop 11/06/18 at 23:14; Status DC Duloxetine HCl (Cymbalta) 90 mg DAILY PO Last administered on 11/10/18 07:34; Start 10/30/18 at 09:00 Pantoprazole Sodium (Protonix) 40 mg DAILYAC PO Last administered on 11/10/18 07:33; Start 10/30/18 at 07:30 Nystatin (Nystop) 1 yoselin BID TP Last administered on 11/10/18 07:34; Start at 21:00 Aripiprazole (Abilify) 5 mg DAILY PO Last administered on 11/02/18at 08:07; Start 11/02/18 at 09:00; Stop 11/02/18 at 17:44; Status DC Aripiprazole (Abilify) 10 mg DAILY PO Last administered on 11/03/18 08:08; Start 11/03/18 at 09:00; Stop 11/03/18 at 16:48; Status DC Aripiprazole (Abilify) 10 mg DAILY PO Last administered on 11/10/18 07:33; Start 11/04/18 at 09:00 Tramadol HCl (Ultram) 50 mg PRN Q6HRS PRN PO PAIN Last administered on 11/04/18 20:04; Start 11/04/18 at 17:45; Stop 11/05/18 at 16:20; Status DC Guaifenesin (Robitussin Dm) 10 ml PRN Q6HRS PRN PO COUGH; Start 11/04/18 at 17:45 Ibuprofen (Motrin) 400 mg PRN Q4HRS PRN PO INFLAMMATION Last administered on 11/10/18at 20:54; Start 11/05/18 at 16:30 Benzonatate (Tessalon Perle) 200 mg PRN TID PRN PO COUGH Last administered on 11/10/18at 22:20; Start 11/05/18 at 16:30 Docusate Sodium (Colace) 100 mg DAILY PO Last administered on 11/10/18 07:33; Start 11/06/18 at 09:00 Betamethasone/ Clotrimazole (Lotrisone) 1 yoselin BID TP Last administered on 11/10/18 22:16; Start 11/05/18 at 21:00 Trazodone HCl (Desyrel) 50 mg QHS PO Last administered on 11/10/18 20:50; Start 11/05/18 at 21:00 Trazodone HCl (Desyrel) 50 mg PRN QHS PRN PO INSOMNIA Last administered on 11/06/18 22:29; Start 11/05/18 at 16:45 Medroxyprogesterone Acetate (Provera) 2.5 mg DAILY PO Last administered on 11/08/18 08:42; Start 11/06/18 at 12:15; Stop 11/08/18 at 21:00; Status DC Medroxyprogesterone Acetate (Provera) 5 mg DAILY PO Last administered on 11/10/18 07:33; Start 11/09/18 at 09:00 Active Scripts Active Reported Ketoconazole 120 Ml Shampoo 1 Yoselin TP TWICE WEEKLY Refresh Optive Eye Drops (Carboxymethylcellulos/Glycerin) 15 Ml Drops 1 Drop EACHEYE PRN QID PRN Simethicone 80 Mg Tab.chew 80 Mg PO PRN TID PRN Oxybutynin Chloride 5 Mg Tablet 5 Mg PO DAILY Omeprazole 20 Mg Capsule.dr 20 Mg PO DAILY07 Duloxetine Hcl 30 Mg Capsule.dr 90 Mg PO DAILY Clotrimazole 15 Gm Cream..g. 1 Yoselin TP PRN TID PRN Atorvastatin Calcium 10 Mg Tablet 10 Mg PO QHS Amlodipine Besylate 5 Mg Tablet 5 Mg PO DAILY I have reviewed the current psychotropics carefully including drug interactions. Risk benefit ratio favors no change other than as noted in my dictated progress note. Diagnosis: Problems: (1) Anxiety disorder (2) Impulse control disorder (3) Major depressive disorder, recurrent episode (4) Mild cognitive impairment ROSALINDA GARCIA MD Nov 10, 2018 22:38
--- NOTE | 2018-11-10 23:26 | NUR ---
Pt. was in his room this evening when this chief underwriter took him his medications. Pt. has been compliant with his HS medications this evening. Pt. requested PRN medications for a cough and pain, see MAR. This chief underwriter has not heard pt. coughing so far this shift.
[2018-11-11 06:15] VITALS: BP 137/88
[2018-11-11 07:08] LABS: BASO % 0 % (0-3); EOS % 0 % (0-3); HEMATOCRIT 46.7 % (39.0-53.0); HEMOGLOBIN 15.6 g/dL (13.0-17.5); LYMPH # 2.3 x10^3/uL (1.0-4.8); LYMPH % 22 % (24-48); MEAN CORPUSCULAR HEMOGLOBIN 27 pg (25-35); MEAN CORPUSCULAR HGB CONC 33 g/dL (31-37); MEAN CORPUSCULAR VOLUME 81 fL (79-100); MONO # 0.4 x10^3/uL (0.0-1.1); MONO % 4 % (0-9); NEUT # 7.7 x10^3uL (1.8-7.7); NEUT % 73 % (31-73); PLATELET COUNT 312 x10^3/uL (140-400); RED BLOOD COUNT 5.75 x10^6/uL (4.30-5.70); RED CELL DISTRIBUTION WIDTH 15.1 % (11.5-14.5); WHITE BLOOD COUNT 10.5 x10^3/uL (4.0-11.0)
[2018-11-11 07:20] LABS: ALBUMIN 3.4 g/dL (3.4-5.0); ALBUMIN/GLOBULIN RATIO 0.8 (1.0-1.7); CALCIUM 9.1 mg/dL (8.5-10.1); CREATININE 0.8 mg/dL (0.7-1.3); GFR 96.1; POTASSIUM 3.8 mmol/L (3.5-5.1); TOTAL BILIRUBIN 0.4 mg/dL (0.2-1.0); TOTAL PROTEIN 7.8 g/dL (6.4-8.2)
[2018-11-11 07:46] LABS: % LYMPHS 20 % (24-48); % MONOS 4 % (0-10); % SEGS 76 % (35-66); TOXIC GRANULATION PRESENT
[2018-11-11 07:47] LABS: OVALOCYTES OCC; PLT ESTIMATE ADEQUATE (ADEQUATE)
[2018-11-11] MEDS: DULoxetine HCL 30 MG CAPSULE.DR PO SCH (08:10)
[2018-11-11] MEDS: medroxyPROGESTERone 5 MG TABLET PO SCH (08:10)
[2018-11-11] MEDS: ARIPiprazole 10 MG TABLET PO SCH (08:10)
[2018-11-11] MEDS: DOCUSATE SODIUM 100 MG CAPSULE PO SCH (08:11)
[2018-11-11] MEDS: PANTOPRAZOLE 40 MG TABLET. PO SCH (08:11)
[2018-11-11] MEDS: OXYBUTYNIN CHLORIDE 5 MG TABLET PO SCH (08:11)
[2018-11-11] MEDS: amLODIPine BESYLATE 5 MG TABLET PO SCH (08:11)
[2018-11-11] MEDS: BENZONATATE 100 MG CAPSULE. PO PRN ×2 (09:07→21:48)
--- NOTE | 2018-11-11 10:12 | NUR ---
WALDEMAR was contacted by Meli Pulido, contract fpchome service director for the [facility], to discuss discharge scheduled for 11/14/2018. Meli will set up wheelchair transport for 11:00 am. WALDEMAR left msg. for WALDEMAR Carlos at [facility], to inform her about discharge plan. WALDEMAR will fax updated pt. records on 11/12/2018.
[2018-11-11] MEDS: NYSTATIN TOPICAL POWDER 15GM BOTTLE. TP SCH ×2 (11:25→21:47)
[2018-11-11] MEDS: CLOTRIMAZOLE/BETAMETH 1%-0.05% TOPICAL CREAM 15GM TUBE. TP SCH ×2 (11:25→21:47)
--- NOTE | 2018-11-11 12:24 | NUR ---
Patient in hallway during initial assessment. Patient calm and cooperative with assessment and medication administration. Patient stated he got upset with "the new radhames" (Angle) last night and went to his room. Played rummy in the dayroom with Kenrick perez. Continues to want to assist other patients. No inappropriate behaviors noted at this time. Will continue to monitor.
[2018-11-11 15:58] VITALS: BP 138/88
--- NOTE | 2018-11-11 20:48 | PN ---
DATE: 11/10/2018 PSYCHIATRIC PROGRESS NOTE This late entry 11/10/2018 covers elements not covered in my initial note. SUBJECTIVE: I met with the patient in the evening. The patient slept 6-1/2 hours previous night. He is compliant with his medications overly involved with other patients and even as I met with him, he was complaining how he felt some of the other patients were not attended to within a few seconds of them asking for something. I processed this at some length with him, but insight is somewhat limited "I just want to do things for others." REVIEW OF SYSTEMS: Ambulation impaired, in wheelchair. No CV, , pulmonary, eye, ENT system symptoms on review. MENTAL STATUS EXAM: Oriented to himself and situation. Speech is coherent, somewhat rapid at times. Abstraction fair, computation impaired, language function intact, attention span short. Mood and affect remain somewhat anxious, labile at times. LABORATORY DATA: Reviewed. IMPRESSION: Unchanged from initial note. PLAN: No change from initial note. MAN Haylie GARCIA MD DR: EDDIE/agnieszka JOB#: [id number] / [id number]
--- NOTE | 2018-11-11 21:40 | PDOC ---
Exam Note: David Note: Please also refer to the separate dictated note~for this date of service dictated separately.~Patient seen individually. Discussed the patient with Nursing staff reviewed the chart.~Reviewed interim history and current functioning. Reviewed vital signs,~Labs/ Radiology~and current medications noted below. Continue current treatment with the changes noted in the dictated addendum note Assessment: Vital Signs: Vital Signs Date Time Temp Pulse Resp B/P (MAP) Pulse Ox O2 Delivery O2 Flow Rate FiO2 11/11/18 15:58 97.7 103 18 138/88 (105) 93 Room Air I&O Intake and Output 11/11/18 07:00 Intake Total 1248 ml Balance 1248 ml Intake Oral 1248 ml # Voids 1 Labs: Laboratory Tests Test 11/11/18 06:16 White Blood Count 10.5 x10^3/uL (4.0-11.0) Red Blood Count 5.75 x10^6/uL (4.30-5.70) H Hemoglobin 15.6 g/dL (13.0-17.5) Hematocrit 46.7 % (39.0-53.0) Mean Corpuscular Volume 81 fL (79-100) Mean Corpuscular Hemoglobin 27 pg (25-35) Mean Corpuscular Hemoglobin Concent 33 g/dL (31-37) Red Cell Distribution Width 15.1 % (11.5-14.5) H Platelet Count 312 x10^3/uL (140-400) Neutrophils (%) (Auto) 73 % (31-73) Lymphocytes (%) (Auto) 22 % (24-48) L Monocytes (%) (Auto) 4 % (0-9) Eosinophils (%) (Auto) 0 % (0-3) Basophils (%) (Auto) 0 % (0-3) Neutrophils # (Auto) 7.7 x10^3uL (1.8-7.7) Lymphocytes # (Auto) 2.3 x10^3/uL (1.0-4.8) Monocytes # (Auto) 0.4 x10^3/uL (0.0-1.1) Eosinophils # (Auto) 0.0 x10^3/uL (0.0-0.7) Basophils # (Auto) 0.0 x10^3/uL (0.0-0.2) Segmented Neutrophils % 76 % (35-66) H Lymphocytes % 20 % (24-48) L Monocytes % 4 % (0-10) Toxic Granulation Present Platelet Estimate Adequate (ADEQUATE) Ovalocytes Occ Sodium Level 143 mmol/L (136-145) Potassium Level 3.8 mmol/L (3.5-5.1) Chloride Level 104 mmol/L (98-107) Carbon Dioxide Level 29 mmol/L (21-32) Anion Gap 10 (6-14) Blood Urea Nitrogen 13 mg/dL (8-26) Creatinine 0.8 mg/dL (0.7-1.3) Estimated GFR (Cockcroft-Gault) 96.1 BUN/Creatinine Ratio 16 (6-20) Glucose Level 112 mg/dL (70-99) H Calcium Level 9.1 mg/dL (8.5-10.1) Total Bilirubin 0.4 mg/dL (0.2-1.0) Aspartate Amino Transferase (AST) 16 U/L (15-37) Alanine Aminotransferase (ALT) 27 U/L (16-63) Alkaline Phosphatase 135 U/L (46-116) H Total Protein 7.8 g/dL (6.4-8.2) Albumin 3.4 g/dL (3.4-5.0) Albumin/Globulin Ratio 0.8 (1.0-1.7) L Current Medications: Meds: Current Medications Acetaminophen (Tylenol) 650 mg PRN Q6HRS PRN PO PAIN / TEMP Last administered on 11/03/18at 20:40; Start 10/29/18 at 15:00; Stop 11/05/18 at 16:20; Status DC Multi-Ingredient Ointment (Analgesic [place]) 1 yoselin PRN QID PRN TP MUSCLE PAIN; Start 10/29/18 at 15:00 Al Hydroxide/Mg Hydroxide (Mylanta Plus Xs) 15 ml PRN AFTMEALHC PRN PO DYSPEPSIA; Start 10/29/18 at 15:00 Magnesium Hydroxide (Milk Of Magnesia) 2,400 mg PRN QHS PRN PO CONSTIPATION; Start 10/29/18 at 15:00 Ketoconazole (Nizoral 2% Shampoo) 1 yoselin QMTH TP Last administered on 11/03/18at 16:00; Start 10/30/18 at 16:00 Oxybutynin Chloride (Ditropan) 5 mg DAILY PO Last administered on 11/11/18 08:11; Start 10/30/18 at 09:00 Simethicone (Gas-X) 80 mg PRN TID PRN PO GAS / BLOATING; Start 10/29/18 at 15:15 Amlodipine Besylate (Norvasc) 5 mg DAILY PO Last administered on 11/11/18 08:11; Start 10/30/18 at 09:00 Atorvastatin Calcium (Lipitor) 10 mg QHS PO Last administered on 11/10/18 20:50; Start 10/29/18 at 21:00 Artificial Tears (Refresh Classic) 1 drop PRN QID PRN OU DRY EYE; Start 10/29/18 at 16:15 Clotrimazole (Lotrimin) 1 yoselin PRN TID PRN TP RASH; Start 10/29/18 at 21:00; Stop 11/06/18 at 23:14; Status DC Duloxetine HCl (Cymbalta) 90 mg DAILY PO Last administered on 11/11/18 08:10; Start 10/30/18 at 09:00 Pantoprazole Sodium (Protonix) 40 mg DAILYAC PO Last administered on 11/11/18 08:11; Start 10/30/18 at 07:30 Nystatin (Nystop) 1 yoselin BID TP Last administered on 11/11/18 11:25; Start 10/30/18 at 21:00 Aripiprazole (Abilify) 5 mg DAILY PO Last administered on 11/02/18 08:07; Start 11/02/18 at 09:00; Stop 11/02/18 at 17:44; Status DC Aripiprazole (Abilify) 10 mg DAILY PO Last administered on 11/03/18 08:08; Start 11/03/18 at 09:00; Stop 11/03/18 at 16:48; Status DC Aripiprazole (Abilify) 10 mg DAILY PO Last administered on 11/11/18 08:10; Start 11/04/18 at 09:00; Stop 11/11/18 at 18:01; Status DC Tramadol HCl (Ultram) 50 mg PRN Q6HRS PRN PO PAIN Last administered on 11/04/18 20:04; Start 11/04/18 at 17:45; Stop 11/05/18 at 16:20; Status DC Guaifenesin (Robitussin Dm) 10 ml PRN Q6HRS PRN PO COUGH; Start 11/04/18 at 17:45 Ibuprofen (Motrin) 400 mg PRN Q4HRS PRN PO INFLAMMATION Last administered on 11/10/18at 20:54; Start 11/05/18 at 16:30 Benzonatate (Tessalon Perle) 200 mg PRN TID PRN PO COUGH Last administered on 11/11/18 09:07; Start 11/05/18 at 16:30 Docusate Sodium (Colace) 100 mg DAILY PO Last administered on 11/11/18 08:11; Start 11/06/18 at 09:00 Betamethasone/ Clotrimazole (Lotrisone) 1 yoselin BID TP Last administered on 11/11/18 11:25; Start 11/05/18 at 21:00 Trazodone HCl (Desyrel) 50 mg QHS PO Last administered on 11/10/18at 20:50; Start 11/05/18 at 21:00 Trazodone HCl (Desyrel) 50 mg PRN QHS PRN PO INSOMNIA Last administered on 11/06/18 22:29; Start 11/05/18 at 16:45 Medroxyprogesterone Acetate (Provera) 2.5 mg DAILY PO Last administered on 11/08/18at 08:42; Start 11/06/18 at 12:15; Stop 11/08/18 at 21:00; Status DC Medroxyprogesterone Acetate (Provera) 5 mg DAILY PO Last administered on 11/11/18 08:10; Start 11/09/18 at 09:00 Aripiprazole (Abilify) 15 mg DAILY PO ; Start 11/12/18 at 09:00 Active Scripts Active Reported Ketoconazole 120 Ml Shampoo 1 Yoselin TP TWICE WEEKLY Refresh Optive Eye Drops (Carboxymethylcellulos/Glycerin) 15 Ml Drops 1 Drop EACHEYE PRN QID PRN Simethicone 80 Mg Tab.chew 80 Mg PO PRN TID PRN Oxybutynin Chloride 5 Mg Tablet 5 Mg PO DAILY Omeprazole 20 Mg Capsule.dr 20 Mg PO DAILY07 Duloxetine Hcl 30 Mg Capsule.dr 90 Mg PO DAILY Clotrimazole 15 Gm Cream..g. 1 Yoselin TP PRN TID PRN Atorvastatin Calcium 10 Mg Tablet 10 Mg PO QHS Amlodipine Besylate 5 Mg Tablet 5 Mg PO DAILY I have reviewed the current psychotropics carefully including drug interactions. Risk benefit ratio favors no change other than as noted in my dictated progress note. Diagnosis: Problems: (1) Anxiety disorder (2) Impulse control disorder (3) Major depressive disorder, recurrent episode (4) Mild cognitive impairment ROSALINDA GARCIA MD Nov 11, 2018 21:40
[2018-11-11] MEDS: traZODone 50 MG TABLET. PO SCH (21:45)
[2018-11-11] MEDS: ATORVASTATIN CALCIUM 10 MG TABLET. PO SCH (21:45)
[2018-11-11] MEDS: IBUPROFEN 400 MG TABLET. PO PRN (21:48)
--- NOTE | 2018-11-12 00:51 | NUR ---
Behavior Intervention Response and Plan: BIRP Note: Behavior: Assumed Care of patient, patient located in Day Room at shift change. Patient exhibited the following behavior Calm, Interactive, Social. Brief assessment on rounds of vital signs, medication needs, lab studies, and pain. Treatment plan problems . Intervention: Patient assessed and the following interventions initiated safety checks 15 Minute Checks Head to toe Assessment , Cognitive Assessment , Medications. Response: After interactions and interventions patient responded in the following manner, Appropriate , Compliant ,Cooperative. Continue to assess behaviors and condition will continue to monitor throughout the shift as needed. Patient educated on ADL's, and hand hygiene. Plan: Continue to monitor Master Treatment Plan for patient's progress toward short term goals of Improved Mood, Decreased Agitation, assisted goals to return to previous living setting vs placement. Continue to assess patient for changes in above assessment. Monitor for medication needs, pain, and safety concerns. Hourly rounding performed to ensure safe environment.
[2018-11-12 06:27] VITALS: BP 154/97
[2018-11-12] MEDS: PANTOPRAZOLE 40 MG TABLET. PO SCH (07:45)
[2018-11-12] MEDS: BENZONATATE 100 MG CAPSULE. PO PRN ×2 (08:20→19:31)
[2018-11-12] MEDS: DULoxetine HCL 30 MG CAPSULE.DR PO SCH (08:30)
[2018-11-12] MEDS: ARIPiprazole 15 MG TABLET PO SCH (08:30)
[2018-11-12] MEDS: OXYBUTYNIN CHLORIDE 5 MG TABLET PO SCH (08:30)
[2018-11-12] MEDS: DOCUSATE SODIUM 100 MG CAPSULE PO SCH (08:30)
[2018-11-12] MEDS: NYSTATIN TOPICAL POWDER 15GM BOTTLE. TP SCH ×2 (08:30→19:24)
[2018-11-12] MEDS: CLOTRIMAZOLE/BETAMETH 1%-0.05% TOPICAL CREAM 15GM TUBE. TP SCH ×2 (08:30→19:24)
[2018-11-12] MEDS: medroxyPROGESTERone 5 MG TABLET PO SCH (08:30)
[2018-11-12] MEDS: amLODIPine BESYLATE 5 MG TABLET PO SCH (08:30)
--- NOTE | 2018-11-12 15:04 | NUR ---
WALDEMAR faxed updated pt. paperwork to Breanna, social science research assistant at [facility], for discharge scheduled for 11/14/2018.
[2018-11-12 15:52] VITALS: BP 126/80
--- NOTE | 2018-11-12 17:39 | NUR ---
Patient calm/cooperative today, he smiles/jokes/laughs with staff during assessment, denies depression or anxiety, received his heather pearls for cough per patient, he was not heard coughing this shift, ins/exh wheezing noted during assessment, denies pain
[2018-11-12] MEDS ORDERED: CHOLECALCIFEROL (VITAMIN D3) 50,000 UNIT CAPSULE PO SCH (18:45)
[2018-11-12] MEDS: traZODone 50 MG TABLET. PO SCH (19:24)
[2018-11-12] MEDS: ATORVASTATIN CALCIUM 10 MG TABLET. PO SCH (19:24)
[2018-11-12] MEDS: IBUPROFEN 400 MG TABLET. PO PRN (19:31)
--- NOTE | 2018-11-12 21:45 | PN ---
DATE: 11/11/2018 PSYCHIATRIC PROGRESS NOTE This late entry 11/11/2018 covers elements not covered in my initial note. SUBJECTIVE: I met with the patient in the evening. The patient slept 5-1/4 hours previous night. He has had some cough and received Tessalon Perles p.r.n., remains quite intrusive with other patients, at times a little grandiose, but redirects. REVIEW OF SYSTEMS: Ambulation impaired, in wheelchair. No CV, , pulmonary, eye system symptoms on review. Does have some cough. MENTAL STATUS EXAM: Reasonably oriented. Speech coherent, somewhat pressured at times. Abstraction fair, computation impaired, language function intact, attention span short. Mood and affect remain somewhat anxious, labile. LABORATORY DATA: Reviewed. IMPRESSION: Unchanged from initial note. PLAN: Increase Abilify to 15 mg a day. Rest unchanged from initial note. No sexually inappropriate behaviors noted, Provera at current dosage. ROSALINDA GARCIA MD DR: EDDIE/agnieszka JOB#: [id number] / [id number]
--- NOTE | 2018-11-12 21:52 | NUR ---
Nursing note: Assumed care of pt in the day room. He was pleasant, cooperative, and pleasant. He asked for and was given his PRN Ibuprofen and Tessalon pearls. He was social and playing cards with another resident.
--- NOTE | 2018-11-12 23:09 | PDOC ---
Exam Note: David Note: Please also refer to the separate dictated note~for this date of service dictated separately.~Patient seen individually. Discussed the patient with Nursing staff reviewed the chart.~Reviewed interim history and current functioning. Reviewed vital signs,~Labs/ Radiology~and current medications noted below. Continue current treatment with the changes noted in the dictated addendum note Assessment: Vital Signs: Vital Signs Date Time Temp Pulse Resp B/P (MAP) Pulse Ox O2 Delivery O2 Flow Rate FiO2 11/12/18 15:52 97.7 93 20 126/80 (95) 94 11/11/18 15:58 Room Air I&O Intake and Output 11/12/18 06:59 Intake Total 1380 ml Balance 1380 ml Intake Oral 1380 ml # Voids 1 Current Medications: Meds: Current Medications Acetaminophen (Tylenol) 650 mg PRN Q6HRS PRN PO PAIN / TEMP Last administered on 11/03/18 20:40; Start 10/29/18 at 15:00; Stop 11/05/18 at 16:20; Status DC Multi-Ingredient Ointment (Analgesic [place]) 1 yoselin PRN QID PRN TP MUSCLE PAIN; Start 10/29/18 at 15:00 Al Hydroxide/Mg Hydroxide (Mylanta Plus Xs) 15 ml PRN AFTMEALHC PRN PO DYSPEPSIA; Start 10/29/18 at 15:00 Magnesium Hydroxide (Milk Of Magnesia) 2,400 mg PRN QHS PRN PO CONSTIPATION; S tart 10/29/18 at 15:00 Ketoconazole (Nizoral 2% Shampoo) 1 yoselin QMTH TP Last administered on 11/03/18at 16:00; Start 10/30/18 at 16:00 Oxybutynin Chloride (Ditropan) 5 mg DAILY PO Last administered on 11/12/18at 08:30; Start 10/30/18 at 09:00 Simethicone (Gas-X) 80 mg PRN TID PRN PO GAS / BLOATING; Start 10/29/18 at 15:15 Amlodipine Besylate (Norvasc) 5 mg DAILY PO Last administered on 11/12/18at 08:30; Start 10/30/18 at 09:00 Atorvastatin Calcium (Lipitor) 10 mg QHS PO Last administered on 11/12/18at 19:24; Start 10/29/18 at 21:00 Artificial Tears (Refresh Classic) 1 drop PRN QID PRN OU DRY EYE; Start 10/29/18 at 16:15 Clotrimazole (Lotrimin) 1 yoselin PRN TID PRN TP RASH; Start 10/29/18 at 21:00; Stop 11/06/18 at 23:14; Status DC Duloxetine HCl (Cymbalta) 90 mg DAILY PO Last administered on 11/12/18at 08:30; Start 10/30/18 at 09:00 Pantoprazole Sodium (Protonix) 40 mg DAILYAC PO Last administered on 11/12/18at 07:45; Start 10/30/18 at 07:30 Nystatin (Nystop) 1 yoselin BID TP Last administered on 11/12/18 19:24; Start 10/30/18 at 21:00 Aripiprazole (Abilify) 5 mg DAILY PO Last administered on 11/02/18at 08:07; Start 11/02/18 at 09:00; Stop 11/02/18 at 17:44; Status DC Aripiprazole (Abilify) 10 mg DAILY PO Last administered on 11/03/18at 08:08; Start 11/03/18 at 09:00; Stop 11/03/18 at 16:48; Status DC Aripiprazole (Abilify) 10 mg DAILY PO Last administered on 11/11/18at 08:10; Start 11/04/18 at 09:00; Stop 11/11/18 at 18:01; Status DC Tramadol HCl (Ultram) 50 mg PRN Q6HRS PRN PO PAIN Last administered on 11/04/18at 20:04; Start 11/04/18 at 17:45; Stop 11/05/18 at 16:20; Status DC Guaifenesin (Robitussin Dm) 10 ml PRN Q6HRS PRN PO COUGH; Start 11/04/18 at 17:45 Ibuprofen (Motrin) 400 mg PRN Q4HRS PRN PO INFLAMMATION Last administered on 11/12/18 19:31; Start 11/05/18 at 16:30 Benzonatate (Tessalon Perle) 200 mg PRN TID PRN PO COUGH Last administered on 11/12/18 19:31; Start 11/05/18 at 16:30 Docusate Sodium (Colace) 100 mg DAILY PO Last administered on 11/12/18 08:30; Start 11/06/18 at 09:00 Betamethasone/ Clotrimazole (Lotrisone) 1 yoselin BID TP Last administered on 11/12/18 19:24; Start 11/05/18 at 21:00 Trazodone HCl (Desyrel) 50 mg QHS PO Last administered on 11/12/18 19:24; Start 11/05/18 at 21:00 Trazodone HCl (Desyrel) 50 mg PRN QHS PRN PO INSOMNIA Last administered on 11/06/18 22:29; Start 11/05/18 at 16:45 Medroxyprogesterone Acetate (Provera) 2.5 mg DAILY PO Last administered on 11/08/18 08:42; Start 11/06/18 at 12:15; Stop 11/08/18 at 21:00; Status DC Medroxyprogesterone Acetate (Provera) 5 mg DAILY PO Last administered on 11/12/18 08:30; Start 11/09/18 at 09:00 Aripiprazole (Abilify) 15 mg DAILY PO Last administered on 11/12/18 08:30; Start 11/12/18 at 09:00 Vitamin D (Vitamin D3) 50,000 unit WEEKLY PO Last administered on 11/12/18 19:24; Start 11/12/18 at 18:45 Active Scripts Active Reported Ketoconazole 120 Ml Shampoo 1 Yoselin TP TWICE WEEKLY Refresh Optive Eye Drops (Carboxymethylcellulos/Glycerin) 15 Ml Drops 1 Drop EACHEYE PRN QID PRN Simethicone 80 Mg Tab.chew 80 Mg PO PRN TID PRN Oxybutynin Chloride 5 Mg Tablet 5 Mg PO DAILY Omeprazole 20 Mg Capsule.dr 20 Mg PO DAILY07 Duloxetine Hcl 30 Mg Capsule.dr 90 Mg PO DAILY Clotrimazole 15 Gm Cream..g. 1 Yoselin TP PRN TID PRN Atorvastatin Calcium 10 Mg Tablet 10 Mg PO QHS Amlodipine Besylate 5 Mg Tablet 5 Mg PO DAILY I have reviewed the current psychotropics carefully including drug interactions. Risk benefit ratio favors no change other than as noted in my dictated progress note. Diagnosis: Problems: (1) Anxiety disorder (2) Impulse control disorder (3) Major depressive disorder, recurrent episode (4) Mild cognitive impairment ROSALINDA GARCIA MD November 12, 2018 23:09
[2018-11-13] MEDS: traZODone 50 MG TABLET. PO PRN (01:51)
[2018-11-13 05:37] VITALS: BP 141/93
[2018-11-13] MEDS: ARIPiprazole 15 MG TABLET PO SCH (07:34)
[2018-11-13] MEDS: DULoxetine HCL 30 MG CAPSULE.DR PO SCH (07:34)
[2018-11-13] MEDS: OXYBUTYNIN CHLORIDE 5 MG TABLET PO SCH (07:34)
[2018-11-13] MEDS: PANTOPRAZOLE 40 MG TABLET. PO SCH (07:34)
[2018-11-13] MEDS: DOCUSATE SODIUM 100 MG CAPSULE PO SCH (07:35)
[2018-11-13] MEDS: medroxyPROGESTERone 5 MG TABLET PO SCH (07:35)
[2018-11-13] MEDS: amLODIPine BESYLATE 5 MG TABLET PO SCH (07:35)
[2018-11-13] MEDS: NYSTATIN TOPICAL POWDER 15GM BOTTLE. TP SCH ×2 (07:37→19:18)
[2018-11-13] MEDS: CLOTRIMAZOLE/BETAMETH 1%-0.05% TOPICAL CREAM 15GM TUBE. TP SCH ×2 (07:37→19:18)
--- NOTE | 2018-11-13 09:49 | NUR ---
WEEKLY ACTIVITY THERAPY NOTE Date of Admission: 10/29/2018 Date of AT Assessment: 10/31/2018 Goal aimed: to increase stress management and recreation education. Initial goal: Pt. will participate in at least three activity groups sessions per week. Weekly progress towards goal: achieved Group participation level: moderate Weekly highlights: fishing on Saturday, reminiscing and helpful Behaviors observed: gave directions to Tiffany Guzman on Saturday, more participation as the week continues, asks about group focuses, social in the hallway, comments about staff clothing, age Plan: no change to goal Beneficial adaptations: possible male care
--- NOTE | 2018-11-13 11:11 | NUR ---
WEEKLY NOTE Pt. has been eating a sleeping well. Pt. joins groups on occasion. Pt. has been talkative, calm, joking that can be inappropriate at times, and continues to be concerned with everyone else's business. Pt. is able to be redirected. Provera will be increased and pt. will be discharging back to [facility] on 11/14/2018.
--- NOTE | 2018-11-13 11:15 | NUR ---
[facility] Social Work Discharge Planning Form Patient Name ZIGGY MELISSA Admit Date: 10/29/2018 DISCHARGE PLAN Discharge Destination: [facility] Assessment: NA Level II Assessment: NA [facility] a.m. on [facility]/2018. Special Instructions/Notes: Please fax discharge paperwork and medication list to [phone]. DISCHARGE TO FACILITY Facility: [facility] Address: [address] [place] [id number] Contact Name: SAMAN Lim Contact Name: WALDEMAR Carlos PCP: Dr. Parmar Psychiatrist: Jaclyn
--- NOTE | 2018-11-13 12:21 | NUR ---
Patient in dining room when assumed care. Alert and oriented, denies pain. Continues to be concerned with other patients business, particularly [place] since he is leaving tomorrow and "someone needs to take care of Granny." Will continue to monitor.
[2018-11-13] MEDS: BENZONATATE 100 MG CAPSULE. PO PRN ×2 (14:02→21:13)
[2018-11-13] MEDS: KETOCONAZOLE 2% SHAMPOO 120ML BOTTLE. TP SCH (16:00)
[2018-11-13 16:11] VITALS: BP 113/76
[2018-11-13] MEDS: traZODone 50 MG TABLET. PO SCH (19:18)
[2018-11-13] MEDS: ATORVASTATIN CALCIUM 10 MG TABLET. PO SCH (19:18)
--- NOTE | 2018-11-13 21:10 | NUR ---
Nursing note: Assumed care of pt in his room where he was sitting quietly. He stated he wanted to talk but mostly he rambled from one topic to another. He was cooperative and pleasant. He asked for PRN Tessalon Perles and Ibuprofen which I gave per order. Pt just wants to sit and talk with someone.
[2018-11-13] MEDS: IBUPROFEN 400 MG TABLET. PO PRN (21:13)
[2018-11-13] MEDS ORDERED: ARIP15TA36 PO (21:43)
[2018-11-13] MEDS ORDERED: BENZ100C PO (21:44)
[2018-11-13] MEDS ORDERED: DOCU-109 PO (21:45)
[2018-11-13] MEDS ORDERED: CHOL500021 PO (21:45)
[2018-11-13] MEDS ORDERED: IBUP400T18 PO (21:46)
[2018-11-13] MEDS ORDERED: MAG30ORA2 PO (21:47)
[2018-11-13] MEDS ORDERED: MAGN2400 PO (21:48)
[2018-11-13] MEDS ORDERED: METH29OI TP (21:49)
[2018-11-13] MEDS ORDERED: NYST60PO TP (21:50)
[2018-11-13] MEDS ORDERED: DEXT237L PO (21:53)
[2018-11-13] MEDS ORDERED: MEDR5TAB PO (21:55)
[2018-11-13] MEDS ORDERED: TRAZ-120 PO ×2 (21:55→21:57)
--- NOTE | 2018-11-13 22:38 | PDOC ---
Exam Note: David Note: Please also refer to the separate dictated note~for this date of service dictated separately.~Patient seen individually. Discussed the patient with Nursing staff reviewed the chart.~Reviewed interim history and current functioning. Reviewed vital signs,~Labs/ Radiology~and current medications noted below. Continue current treatment with the changes noted in the dictated addendum note Assessment: Vital Signs: Vital Signs Date Time Temp Pulse Resp B/P (MAP) Pulse Ox O2 Delivery O2 Flow Rate FiO2 11/13/18 16:11 97.8 103 20 113/76 (88) 92 11/11/18 15:58 Room Air I&O Intake and Output 11/13/18 07:00 Intake Total 1680 ml Balance 1680 ml Intake Oral 1680 ml # Voids 1 Current Medications: Meds: Current Medications Acetaminophen (Tylenol) 650 mg PRN Q6HRS PRN PO PAIN / TEMP Last administered on 11/03/18 20:40; Start 10/29/18 at 15:00; Stop 11/05/18 at 16:20; Status DC Multi-Ingredient Ointment (Analgesic [place]) 1 yoselin PRN QID PRN TP MUSCLE PAIN; Start 10/29/18 at 15:00 Al Hydroxide/Mg Hydroxide (Mylanta Plus Xs) 15 ml PRN AFTMEALHC PRN PO DYSPEPSIA; Start 10/29/18 at 15:00 Magnesium Hydroxide (Milk Of Magnesia) 2,400 mg PRN QHS PRN PO CONSTIPATION; Start 10/29/18 at 15:00 Ketoconazole (Nizoral 2% Shampoo) 1 yoselin QMTH TP Last administered on 11/03/18at 16:00; Start 10/30/18 at 16:00 Oxybutynin Chloride (Ditropan) 5 mg DAILY PO Last administered on 11/13/18at 07:34; Start 10/30/18 at 09:00 Simethicone (Gas-X) 80 mg PRN TID PRN PO GAS / BLOATING; Start 10/29/18 at 15:15 Amlodipine Besylate (Norvasc) 5 mg DAILY PO Last administered on 11/13/18at 07:35; Start 10/30/18 at 09:00 Atorvastatin Calcium (Lipitor) 10 mg QHS PO Last administered on 11/13/18 19:18; Start 10/29/18 at 21:00 Artificial Tears (Refresh Classic) 1 drop PRN QID PRN OU DRY EYE; Start 10/29/18 at 16:15 Clotrimazole (Lotrimin) 1 yoselin PRN TID PRN TP RASH; Start 10/29/18 at 21:00; Stop 11/06/18 at 23:14; Status DC Duloxetine HCl (Cymbalta) 90 mg DAILY PO Last administered on 11/13/18 07:34; Start 10/30/18 at 09:00 Pantoprazole Sodium (Protonix) 40 mg DAILYAC PO Last administered on 11/13/18 07:34; Start 10/30/18 at 07:30 Nystatin (Nystop) 1 yoselin BID TP Last administered on 11/13/18 19:18; Start 10/30/18 at 21:00 Aripiprazole (Abilify) 5 mg DAILY PO Last administered on 11/02/18at 08:07; Start 11/02/18 at 09:00; Stop 11/02/18 at 17:44; Status DC Aripiprazole (Abilify) 10 mg DAILY PO Last administered on 11/03/18at 08:08; Start 11/03/18 at 09:00; Stop 11/03/18 at 16:48; Status DC Aripiprazole (Abilify) 10 mg DAILY PO Last administered on 11/11/18at 08:10; Start 11/04/18 at 09:00; Stop 11/11/18 at 18:01; Status DC Tramadol HCl (Ultram) 50 mg PRN Q6HRS PRN PO PAIN Last administered on 11/04/18at 20:04; Start 11/04/18 at 17:45; Stop 11/05/18 at 16:20; Status DC Guaifenesin (Robitussin Dm) 10 ml PRN Q6HRS PRN PO COUGH; Start 11/04/18 at 17:45 Ibuprofen (Motrin) 400 mg PRN Q4HRS PRN PO INFLAMMATION Last administered on 11/13/18 21:13; Start 11/05/18 at 16:30 Benzonatate (Tessalon Perle) 200 mg PRN TID PRN PO COUGH Last administered on 11/13/18 21:13; Start 11/05/18 at 16:30 Docusate Sodium (Colace) 100 mg DAILY PO Last administered on 11/13/18 07:35; Start 11/06/18 at 09:00 Betamethasone/ Clotrimazole (Lotrisone) 1 yoselin BID TP Last administered on 11/13/18 19:18; Start 11/05/18 at 21:00 Trazodone HCl (Desyrel) 50 mg QHS PO Last administered on 11/13/18 19:18; Start 11/05/18 at 21:00 Trazodone HCl (Desyrel) 50 mg PRN QHS PRN PO INSOMNIA Last administered on 11/13/18 01:51; Start 11/05/18 at 16:45 Medroxyprogesterone Acetate (Provera) 2.5 mg DAILY PO Last administered on 11/08/18 08:42; Start 11/06/18 at 12:15; Stop 11/08/18 at 21:00; Status DC Medroxyprogesterone Acetate (Provera) 5 mg DAILY PO Last administered on 11/13/18at 07:35; Start 11/09/18 at 09:00; Stop 11/13/18 at 11:22; Status DC Aripiprazole (Abilify) 15 mg DAILY PO Last administered on 11/13/18at 07:34; Start 11/12/18 at 09:00 Vitamin D (Vitamin D3) 50,000 unit WEEKLY PO Last administered on 11/12/18 19:24; Start 11/12/18 at 18:45 Medroxyprogesterone Acetate (Provera) 7.5 mg DAILY PO ; Start 11/14/18 at 09:00 Active Scripts Active Reported Trazodone Hcl 50 Mg Tablet 50 Mg PO PRN QHS PRN Trazodone Hcl 50 Mg Tablet 50 Mg PO QHS Provera (Medroxyprogesterone Acetate) 5 Mg Tablet 7.5 Mg PO DAILY Robitussin Nighttime Cough Dm (Dextromethorphan Hb/Doxylamine) 237 Ml Liquid 10 Ml PO PRN Q6HRS PRN Nystop (Nystatin) 60 Gm Powder 1 Yoselin TP BID Analgesic [place] (Methyl Salicylate/Menthol) 28 Gm Oint...g. 1 Yoselin TP PRN QID PRN Milk Of Magnesia (Magnesium Hydroxide) 2,400 Mg/10 Ml Oral.susp 2,400 Mg PO PRN DAILY PRN Mag-Al Plus Xs Suspension (Mag Hydrox/Al Hydrox/Simeth) 30 Ml Oral.susp 15 Ml PO PRN AFTMEALHC PRN Ibuprofen 400 Mg Tablet 400 Mg PO PRN Q4HRS PRN Colace (Docusate Sodium) 100 Mg Capsule 100 Mg PO DAILY D3-50 (Cholecalciferol (Vitamin D3)) 50,000 Unit Capsule 50,000 Unit PO WEEKLY Tessalon Perle (Benzonatate) 100 Mg Capsule 200 Mg PO PRN TID PRN Abilify (Aripiprazole) 15 Mg Tablet 15 Mg PO DAILY Ketoconazole 120 Ml Shampoo 1 Yoselin TP TWICE WEEKLY Refresh Optive Eye Drops (Carboxymethylcellulos/Glycerin) 15 Ml Drops 1 Drop EACHEYE PRN QID PRN Simethicone 80 Mg Tab.chew 80 Mg PO PRN TID PRN Oxybutynin Chloride 5 Mg Tablet 5 Mg PO DAILY Omeprazole 20 Mg Capsule.dr 20 Mg PO DAILY07 Duloxetine Hcl 30 Mg Capsule.dr 90 Mg PO DAILY Clotrimazole 15 Gm Cream..g. 1 Yoselin TP PRN TID PRN Atorvastatin Calcium 10 Mg Tablet 10 Mg PO QHS Amlodipine Besylate 5 Mg Tablet 5 Mg PO DAILY I have reviewed the current psychotropics carefully including drug interactions. Risk benefit ratio favors no change other than as noted in my dictated progress note. Diagnosis: Problems: (1) Anxiety disorder (2) Impulse control disorder (3) Major depressive disorder, recurrent episode (4) Mild cognitive impairment ROSALINDA GARCIA MD November 13, 2018 22:38
[2018-11-14 05:44] VITALS: BP 133/85
[2018-11-14] MEDS: DOCUSATE SODIUM 100 MG CAPSULE PO SCH (07:56)
[2018-11-14] MEDS: DULoxetine HCL 30 MG CAPSULE.DR PO SCH (07:56)
[2018-11-14] MEDS: NYSTATIN TOPICAL POWDER 15GM BOTTLE. TP SCH (07:56)
[2018-11-14] MEDS: ARIPiprazole 15 MG TABLET PO SCH (07:56)
[2018-11-14] MEDS: PANTOPRAZOLE 40 MG TABLET. PO SCH (07:56)
[2018-11-14] MEDS: CLOTRIMAZOLE/BETAMETH 1%-0.05% TOPICAL CREAM 15GM TUBE. TP SCH (07:56)
[2018-11-14 07:57] VITALS: BP 133/85
[2018-11-14] MEDS: amLODIPine BESYLATE 5 MG TABLET PO SCH (07:57)
[2018-11-14] MEDS: OXYBUTYNIN CHLORIDE 5 MG TABLET PO SCH (07:57)
[2018-11-14] MEDS ORDERED: medroxyPROGESTERone 5 MG TABLET PO SCH (09:00)
[2018-11-14] MEDS: BENZONATATE 100 MG CAPSULE. PO PRN (09:23)
--- NOTE | 2018-11-14 10:45 | NUR ---
Transition Record was faxed to follow-up provider with the following elements: Reason for admission, procedures, tests, principal diagnosis, pending studies, patient instructions, 04/02 contact information for unit, phone number to obtain pending test results, plan for follow-up care, physician follow-up, advanced directive information, and medication list with dose, duration and instructions. This information was included in the following documents: History and physical, lab results, study results, progress notes, social work planning form, DC instruction form, patient visit summary, and medication reconciliation form. Date & time record faxed: 11/14/2018 at 0900 Record faxed to: [phone] [facility] Record discussed with/ report given to: called facility twice at 0915 and 0930, left message, have not received return phone call at this time. Patient left [facility].
--- NOTE | 2018-11-14 18:40 | PDOC ---
Exam Note: David Note: Please also refer to the separate dictated note~for this date of service dictated separately.~Patient seen individually. Discussed the patient with Nursing staff reviewed the chart.~Reviewed interim history and current functioning. Reviewed vital signs,~Labs/ Radiology~and current medications noted below. Continue current treatment with the changes noted in the dictated addendum note Assessment: Vital Signs: Vital Signs Date Time Temp Pulse Resp B/P (MAP) Pulse Ox O2 Delivery O2 Flow Rate FiO2 11/14/18 07:57 108 133/85 11/14/18 05:44 97.7 20 95 11/11/18 15:58 Room Air I&O Intake and Output 11/14/18 07:00 Intake Total 1380 ml Balance 1380 ml Intake Oral 1380 ml # Bowel Movements 2 Current Medications: Meds: Current Medications Acetaminophen (Tylenol) 650 mg PRN Q6HRS PRN PO PAIN / TEMP Last administered on 11/03/18at 20:40; Start 10/29/18 at 15:00; Stop 11/05/18 at 16:20; Status DC Multi-Ingredient Ointment (Analgesic [place]) 1 yoselin PRN QID PRN TP MUSCLE PAIN; Start 10/29/18 at 15:00; Stop 11/14/18 at 10:51; Status DC Al Hydroxide/Mg Hydroxide (Mylanta Plus Xs) 15 ml PRN AFTMEALHC PRN PO DYSPEPSIA; Start 10/29/18 at 15:00; Stop 11/14/18 at 10:51; Status DC Magnesium Hydroxide (Milk Of Magnesia) 2,400 mg PRN QHS PRN PO CONSTIPATION; Start 10/29/18 at 15:00; Stop 11/14/18 at 10:51; Status DC Ketoconazole (Nizoral 2% Shampoo) 1 yoselin QMTH TP Last administered on 11/03/18at 16:00; Start 10/30/18 at 16:00; Stop 11/14/18 at 10:51; Status DC Oxybutynin Chloride (Ditropan) 5 mg DAILY PO Last administered on 11/14/18at 07:57; Start 10/30/18 at 09:00; Stop 11/14/18 at 10:52; Status DC Simethicone (Gas-X) 80 mg PRN TID PRN PO GAS / BLOATING; Start 10/29/18 at 15:15; Stop 11/14/18 at 10:52; Status DC Amlodipine Besylate (Norvasc) 5 mg DAILY PO Last administered on 11/14/18 07:5 7; Start 10/30/18 at 09:00; Stop 11/14/18 at 10:52; Status DC Atorvastatin Calcium (Lipitor) 10 mg QHS PO Last administered on 11/13/18 19:18; Start 10/29/18 at 21:00; Stop 11/14/18 at 10:52; Status DC Artificial Tears (Refresh Classic) 1 drop PRN QID PRN OU DRY EYE; Start 10/29/18 at 16:15; Stop 11/14/18 at 10:52; Status DC Clotrimazole (Lotrimin) 1 yoselin PRN TID PRN TP RASH; Start 10/29/18 at 21:00; Stop 11/06/18 at 23:14; Status DC Duloxetine HCl (Cymbalta) 90 mg DAILY PO Last administered on 11/14/18at 07:56; Start 10/30/18 at 09:00; Stop 11/14/18 at 10:52; Status DC Pantoprazole Sodium (Protonix) 40 mg DAILYAC PO Last administered on 11/14/18 07:56; Start 10/30/18 at 07:30; Stop 11/14/18 at 10:52; Status DC Nystatin (Nystop) 1 yoselin BID TP Last administered on 11/14/18 07:56; Start 10/30/18 at 21:00; Stop 11/14/18 at 10:52; Status DC Aripiprazole (Abilify) 5 mg DAILY PO Last administered on 11/02/18 08:07; Start 11/02/18 at 09:00; Stop 11/02/18 at 17:44; Status DC Aripiprazole (Abilify) 10 mg DAILY PO Last administered on 11/03/18at 08:08; Start 11/03/18 at 09:00; Stop 11/03/18 at 16:48; Status DC Aripiprazole (Abilify) 10 mg DAILY PO Last administered on 11/11/18at 08:10; Start 11/04/18 at 09:00; Stop 11/11/18 at 18:01; Status DC Tramadol HCl (Ultram) 50 mg PRN Q6HRS PRN PO PAIN Last administered on 11/04/18 20:04; Start 11/04/18 at 17:45; Stop 11/05/18 at 16:20; Status DC Guaifenesin (Robitussin Dm) 10 ml PRN Q6HRS PRN PO COUGH; Start 11/04/18 at 17:45; Stop 11/14/18 at 10:52; Status DC Ibuprofen (Motrin) 400 mg PRN Q4HRS PRN PO INFLAMMATION Last administered on 11/13/18 21:13; Start 11/05/18 at 16:30; Stop 11/14/18 at 10:52; Status DC Benzonatate (Tessalon Perle) 200 mg PRN TID PRN PO COUGH Last administered on 11/14/18 09:23; Start 11/05/18 at 16:30; Stop 11/14/18 at 10:52; Status DC Docusate Sodium (Colace) 100 mg DAILY PO Last administered on 11/14/18 07:56; Start 11/06/18 at 09:00; Stop 11/14/18 at 10:52; Status DC Betamethasone/ Clotrimazole (Lotrisone) 1 yoselin BID TP Last administered on 11/14/18 07:56; Start 11/05/18 at 21:00; Stop 11/14/18 at 10:52; Status DC Trazodone HCl (Desyrel) 50 mg QHS PO Last administered on 11/13/18 19:18; Start 11/05/18 at 21:00; Stop 11/14/18 at 10:52; Status DC Trazodone HCl (Desyrel) 50 mg PRN QHS PRN PO INSOMNIA Last administered on 11/13/18 01:51; Start 11/05/18 at 16:45; Stop 11/14/18 at 10:52; Status DC Medroxyprogesterone Acetate (Provera) 2.5 mg DAILY PO Last administered on 11/08/18at 08:42; Start 11/06/18 at 12:15; Stop 11/08/18 at 21:00; Status DC Medroxyprogesterone Acetate (Provera) 5 mg DAILY PO Last administered on 11/13/18at 07:35; Start 11/09/18 at 09:00; Stop 11/13/18 at 11:22; Status DC Aripiprazole (Abilify) 15 mg DAILY PO Last administered on 11/14/18at 07:56; Start 11/12/18 at 09:00; Stop 11/14/18 at 10:52; Status DC Vitamin D (Vitamin D3) 50,000 unit WEEKLY PO Last administered on 11/12/18at 19:24; Start 11/12/18 at 18:45; Stop 11/14/18 at 10:52; Status DC Medroxyprogesterone Acetate (Provera) 7.5 mg DAILY PO Last administered on 11/14/18at 07:58; Start 11/14/18 at 09:00; Stop 11/14/18 at 10:52; Status DC Active Scripts Active Reported Trazodone Hcl 50 Mg Tablet 50 Mg PO PRN QHS Trazodone Hcl 50 Mg Tablet 50 Mg PO QHS May repeat one time within one hour Provera (Medroxyprogesterone Acetate) 5 Mg Tablet 7.5 Mg PO DAILY Robitussin Nighttime Cough Dm (Dextromethorphan Hb/Doxylamine) 237 Ml Liquid 10 Ml PO PRN Q6HRS PRN Nystop (Nystatin) 60 Gm Powder 1 Yoselin TP BID Analgesic [place] (Methyl Salicylate/Menthol) 28 Gm Oint...g. 1 Yoselin TP PRN QID PRN Milk Of Magnesia (Magnesium Hydroxide) 2,400 Mg/10 Ml Oral.susp 2,400 Mg PO PRN DAILY PRN Mag-Al Plus Xs Suspension (Mag Hydrox/Al Hydrox/Simeth) 30 Ml Oral.susp 15 Ml PO PRN AFTMEALHC PRN Ibuprofen 400 Mg Tablet 400 Mg PO PRN Q4HRS PRN Colace (Docusate Sodium) 100 Mg Capsule 100 Mg PO DAILY D3-50 (Cholecalciferol (Vitamin D3)) 50,000 Unit Capsule 50,000 Unit PO WEEKLY Tessalon Perle (Benzonatate) 100 Mg Capsule 200 Mg PO PRN TID PRN Abilify (Aripiprazole) 15 Mg Tablet 15 Mg PO DAILY Ketoconazole 120 Ml Shampoo 1 Yoselin TP TWICE WEEKLY Refresh Optive Eye Drops (Carboxymethylcellulos/Glycerin) 15 Ml Drops 1 Drop EACHEYE PRN QID PRN Simethicone 80 Mg Tab.chew 80 Mg PO PRN TID PRN Oxybutynin Chloride 5 Mg Tablet 5 Mg PO DAILY Omeprazole 20 Mg Capsule.dr 20 Mg PO DAILY07 Duloxetine Hcl 30 Mg Capsule.dr 90 Mg PO DAILY Clotrimazole 15 Gm Cream..g. 1 Yoselin TP PRN TID PRN Atorvastatin Calcium 10 Mg Tablet 10 Mg PO QHS Amlodipine Besylate 5 Mg Tablet 5 Mg PO DAILY I have reviewed the current psychotropics carefully including drug interactions. Risk benefit ratio favors no change other than as noted in my dictated progress note. Diagnosis: Problems: (1) Mild cognitive impairment (2) Major depressive disorder, recurrent episode (3) Impulse control disorder (4) Anxiety disorder ROSALINDA GARCIA MD November 14, 2018 18:40
--- NOTE | 2018-11-14 20:09 | PN ---
DATE: 11/12/2018 PSYCHIATRIC PROGRESS NOTE This late entry 11/12/2018 covers elements not covered in my initial note. SUBJECTIVE: I met with the patient in the evening at length. The patient slept 4-3/4 hours previous night. He remains somewhat sarcastic, intrusive with other patients and I addressed this with him at length individually. REVIEW OF SYSTEMS: Ambulation impaired, in wheelchair. No CV, , pulmonary, eye system symptoms on review. He has vague somatic symptoms. MENTAL STATUS EXAM: Oriented to himself and situation. Speech is coherent, rapid at times. Abstraction fair, computation impaired, language function intact, attention span short. Mood and affect remain somewhat anxious, labile. LABORATORY DATA: Reviewed. IMPRESSION: Unchanged from initial note. PLAN: No change from initial note. MAN Haylie GARCIA MD DR: EDDIE/agnieszka JOB#: [id number] / [id number]
--- NOTE | 2018-11-14 21:40 | PN ---
DATE: 11/13/2018 PSYCHIATRIC PROGRESS NOTE This late entry 11/13/2018 covers elements not covered in my initial note. SUBJECTIVE: I met with the patient in the evening at length and staffed at treatment team meeting with the entire team in the morning. The patient remains somewhat sexually inappropriate at times, but redirectable. REVIEW OF SYSTEMS: Ambulation impaired, in wheelchair. No CV, , pulmonary, eye system symptoms on review. He gets a little intrusive with others, but again redirects. MENTAL STATUS EXAM: Reasonably oriented. Speech is coherent, less pressured. Abstraction fair, computation impaired, language function intact, attention span short. Mood and affect somewhat withdrawn. At certain times, little more intrusive and animated at other times. LABORATORY DATA: Reviewed. IMPRESSION: Unchanged from initial note. PLAN: Increase Provera to 7.5 mg a day. We will transition to snf 11/14/2018. Rest unchanged per initial note. MAN Haylie GARCIA MD DR: EDDIE/agnieszka JOB#: [id number] / [id number]
--- NOTE | 2018-11-17 13:04 | DS ---
DATE OF DISCHARGE: 11/14/2018 DISCHARGE SUMMARY/PSYCHIATRIC PROGRESS NOTE This is a late, date of service 11/14/2018 covers elements not covered in my initial note. REASON FOR ADMISSION: Please refer to the admission history for details. Briefly, the patient is a 68-year-old male referred to us from [facility] via the Emergency Room at the [facility] after he presented there on account of sexually inappropriate behaviors, agitation within the context of his diagnoses of bipolar disorder versus schizoaffective disorder. Behaviors were totally out of control. He was sexually inappropriate, agitated, aggressive, somewhat grandiose. He had failed outpatient psychiatric interventions resulting in this referral. SIGNIFICANT FINDINGS AND CLINICAL COURSE: Following admission, the patient was seen daily individually by myself from a psychiatric standpoint, medical followup with Dr. Atkins. The patient remained quite grandiose, intrusive, telling staff how to help other patients. Adjustments were made in his psychotropics. He seemed to respond to a combination of Cymbalta 90 mg a day, trazodone 50 mg at bedtime, november repeat x 1; Abilify 15 mg a day, Provera was added for his sexually inappropriate behaviors and gradually adjusted to 7.5 mg a day. Prior to discharge on 11/14/2018. REVIEW OF SYSTEMS: Ambulation impaired, in wheelchair. No CV, , pulmonary, eye, ENT system symptoms on review. MENTAL STATUS EXAM: Oriented to himself and situation. Speech coherent, less pressured. Abstraction fair, computation impaired, language function intact. Mood and affect, lability was improved. No suicidal or homicidal ideation. Not sexually inappropriate prior to discharge. FINAL DIAGNOSES: Bipolar 1 disorder, mixed with psychotic features, in partial remission; anxiety disorder, unspecified; history of major depressive disorder with psychotic features, mild cognitive impairment. Rest unchanged from admission. DISCHARGE MEDICATIONS: Please refer to the [facility]. DISCHARGE INSTRUCTIONS: [facility]patient psychiatric and [facility]up at the [facility]. Time for discharge day management greater than 30 minutes. ROSALINDA GARCIA MD DR: EDDIE/agnieszka JOB#: [id number] / [id number]
== END 2018-11-14 10:51 | DRG 885 ==
LOC: GEROPSY 14:53
PROVIDERS: ADMIT Psychiatry & Neurology Psychiatry; ATTEND Psychiatry & Neurology Psychiatry
DX: F31.64 Bipolar disorder, current episode mixed, severe, with psychotic features (principal); R45.851 Suicidal ideations; Z68.41 Body mass index [BMI] 40.0-44.9, adult; F02.81 Dementia in other diseases classified elsewhere, unspecified severity, with behavioral disturbance; F01.51 Vascular dementia, unspecified severity, with behavioral disturbance; E53.8 Deficiency of other specified B group vitamins; E55.9 Vitamin D deficiency, unspecified; E78.5 Hyperlipidemia, unspecified; F41.1 Generalized anxiety disorder; F63.9 Impulse disorder, unspecified; G30.9 Alzheimer's disease, unspecified; I10 Essential (primary) hypertension; K21.9 Gastro-esophageal reflux disease without esophagitis; M19.90 Unspecified osteoarthritis, unspecified site; M21.70 Unequal limb length (acquired), unspecified site; N52.9 Male erectile dysfunction, unspecified; Z96.642 Presence of left artificial hip joint; Z98.41 Cataract extraction status, right eye; Z98.42 Cataract extraction status, left eye; Z79.899 Other long term (current) drug therapy; E66.01 Morbid (severe) obesity due to excess calories; G47.00 Insomnia, unspecified; G89.29 Other chronic pain; Z87.01 Personal history of pneumonia (recurrent); Z87.828 Personal history of other (healed) physical injury and trauma
CPT/HCPCS: 36415; 80053; 80061; 82306; 83036; 83540; 83550; 83735; 84436; 84443; 84480; 85007; 85025; 86592; 93005